=== PATIENT | female | born 1965 | race Caucasian/White ===

== ENCOUNTER 2018-07-03 18:31 | Inpatient (IN) | payer OTHER ==
--- NOTE | 2018-07-03 19:57 | PDOC ---
History of Present Illness - General Chief Complaint: Pain, Acute Stated Complaint: PAIN, ACUTE Time Seen by Provider: 07/03/18 19:23 History Source: Patient Exam Limitations: No Limitations - History of Present Illness Initial Comments: 07/03/18 19:46 53 yo female pmh COPD, hypertension, kidney stones (most recent 5 years ago, required admission to hospital and lithotripsy) and bowel obstruction over 20 years ago (portion of large intestine removed) presents to the ED with left flank pain and decreased appetite for 2 days. Patient states the pain started suddenly and became severe today prompting her to come to the ED. Pt admits to 1 episode of NBNB vomiting yesterday with constant nausea, no bowel movement for 2 days and chills but denies injury to affected area, CP, SOB or changes in urinary habits. Past History - Past Medical History Allergies/Adverse Reactions: Allergies Allergy/AdvReac Type Severity Reaction Status Date / Time No Known Allergies Allergy Verified 07/03/18 18:37 Home Medications: Ambulatory Orders Metoprolol Tartrate [Lopressor -] 100 mg PO DAILY 01/13/14 Amlodipine Besylate 10 mg PO DAILY 07/03/18 COPD: No HTN: Yes Kidney Stones: Yes - Immunization History Immunization Up to Date: Yes - Suicide/Smoking/Psychosocial Hx Smoking History: Never smoked Hx Alcohol Use: No Drug/Substance Use Hx: No *Physical Exam - Vital Signs Last Vital Signs Temp Pulse Resp BP Pulse Ox 98.2 F 65 18 129/60 98 07/03/18 18:37 07/03/18 18:37 07/03/18 18:37 07/03/18 18:37 07/03/18 18:37 ED Treatment Course - LABORATORY CBC & Chemistry Diagram: 07/03/18 20:50 07/03/18 20:50 Medical Decision Making - Medical Decision Making 07/03/18 23:57 53yo female pmh of kidney stones presents with left flank pain. Pt received 1000mg IV tylenol without much improvement, 4 mg IV morphine given with pain relief. Spiral CT shows no stone Labs show concerning signs of post renal nephropathy (BUN 59, Creatnine 9) Spoke with Dr. Lee who agrees to have her admitted and will see her in the morning. 07/04/18 00:[address] Lee who agrees to see patient in the morning Nephro consult and admit *DC/Admit/Observation/Transfer Diagnosis at time of Disposition: AUBREE (acute kidney injury) - Discharge Dispostion Condition at time of disposition: Stable Decision to Admit order: Yes - Referrals Referrals: Cali Vasquez MD [Primary Care Provider] - - Patient Instructions - Post Discharge Activity
--- NOTE | 2018-07-03 20:12 | PDOC ---
Attending Attestation - Resident Resident Name: Sridhar Riley - ED Attending Attestation I have performed the following: I have examined & evaluated the patient, The case was reviewed & discussed with the resident, I agree w/resident's findings & plan, Exceptions are as noted - HPI HPI: 07/03/18 21:25 The patient is a 53-year-old female with past medical history significant for COPD, HTH, hx of Kidney stones (s/p lithotripsy 5 years ago), and bowel obstruction (20 years ago with a portion of large intestine removal) presents to the emergency department with L. flank pain, nausea and decreased appetite. The patient presents with 2 days of symptoms that worsened earlier today. The patient states she had an episode of nonbilious-bloody emesis yesterday, denies any episodes today but states shes been nauseous all day, without relief. The patient reports associated symptoms of unable to move bowel for the past 2 days , states baseline she has 2-3 bowel movements daily. Denies chest pain, shortness of breath, trauma, recent travel, sick constant, diarrhea, dysuria, hematuria, frequency or urgency to urinate, fever, chills or dizziness. Allergies: NKA Social history: No past or present use of tobacco, alcohol or recreational drugs. Surgical history: lithotripsy and partial L. intestine removed. PCP: Cali Chapa MD - Physicial Exam PE: 07/03/18 21:25 GENERAL: Awake, alert, and fully oriented, in no acute distress. Appears uncomfortable. EYES: PERRLA, EOMI, sclera anicteric, conjunctiva clear ENT: Oropharynx clear without exudates. Moist mucosa NECK: Normal ROM, supple LUNGS: Breath sounds equal, clear to auscultation bilaterally. No wheezes, and no crackles HEART: Regular rate and rhythm, normal S1 and S2, no murmurs, rubs or gallops ABDOMEN: Soft, nontender, normoactive bowel sounds. No guarding, no rebound. No masses. +L CVAT EXTREMITIES: Normal range of motion, no edema. No cords, erythema, or tenderness BACK: No midline spinal tenderness in cervical/thoracic/lumbar region NEUROLOGICAL: Normal speech, cranial nerves intact, 5/5 strength in all 4 extremities, normal sensation to light touch in all 4 extremities, normal cerebellar exam, normal gait, normal tone SKIN: Warm, Dry, normal turgor, no rashes or lesions noted. - Medical Decision Making 07/03/18 21:28 53yo F with MMP including SBO, renal colic p/w L sided flank pain, nausea that feels like previous kidney stones. Pt also with decreased BMs, possible SBO, however AXR with air through rectum and no air-fluid levels. Will obtain CTAP non con to eval for stone, check labs/UA, control pain/nausea, and reassess. 07/04/18 00:37 Labs remarkable for leukocytosis of 10 and creatinine of 9. Concern for postobstructive renal failure. CT scan with no evidence of kidney stone, however may have passed? Could be pyelonephritis. pt covered with zosyn. Case discussed with Dr. Lee (uro) who agrees with management and will see in AM. 07/04/18 00:41 Case discussed with KATHY Sam, pt accepted for admission Case discussed in detail with admitting physician including history, physical exam and ancillary studies. Admitting physician has assumed care for the patient, will follow all pending diagnostics and will complete the evaluation and treatment.
[2018-07-03] MEDS ORDERED: ACETAMINOPHEN 1000 MG/100 ML VIAL (NON FORMULARY) IVPB ONE (20:17)
[2018-07-03] MEDS ORDERED: ACETAMINOPHEN INJECTION 100 ML IVPB ONE (20:37)
[2018-07-03 20:40] LABS: URINE APPEARANCE SLCLOUDY; URINE BILIRUBIN NEGATIVE (<2.0 mg/dL); URINE COLOR LTYELLOW; URINE GLUCOSE (UA) NEGATIVE (NEGATIVE); URINE KETONE NEGATIVE (NEGATIVE); URINE LEUK ESTERASE 3+ (NEGATIVE); URINE NITRITE NEGATIVE (NEGATIVE); URINE PROTEIN NEGATIVE (NEGATIVE); URINE UROBILINOGEN NEGATIVE mg/dL (0.2-1.0)
[2018-07-03 20:56] LABS: EPI CELLS RARE /HPF (FEW); URINE BACTERIA RARE /hpf (NONE SEEN); URINE MUCUS RARE
[2018-07-03 21:16] LABS: BASO % 1.1 % (0-2.0); EOS % 2.1 % (0-4.5); HEMOGLOBIN 15.2 GM/dL (10.7-15.3); LYMPH % 23.8 % (8-40); MCH 30.2 pg (25.7-33.7); MCHC 33.8 g/dl (32.0-36.0); MEAN CELL VOLUME 89.3 fl (80-96); MEAN PLT VOLUME 7.8 fl (7.5-11.1); MONO % 7.1 % (3.8-10.2); NEUT % 65.9 % (42.8-82.8); PLATELET COUNT 254 K/MM3 (134-434); RBC 5.04 M/mm3 (3.60-5.2); RDW 12.9 % (11.6-15.6); WHITE BLOOD COUNT 10.3 K/mm3 (4.0-10.0)
[2018-07-03] MEDS ORDERED: ONDANSETRON 4 MG/2 ML VIAL ONE (21:18)
[2018-07-03] MEDS ORDERED: morphine CARPU-JECT 4 MG/1 ML DISP.SYRIN IVPUSH ONE (21:24)
[2018-07-03] MEDS: ONDANSETRON 4 MG/2 ML VIAL IVPUSH ONE (21:24)
[2018-07-03] MEDS ORDERED: morphine SULFATE 4 MG/ML VIAL ONE (21:31)
[2018-07-03 21:47] LABS: ALBUMIN 3.7 g/dl (3.4-5.0); ALK PHOS 66 U/L (45-117); ANION GAP 11 MMOL/L (8-16); BILIRUBIN,TOTAL 0.8 mg/dL (0.2-1); BLOOD UREA NITROGEN 59 mg/dL (7-18); CALCIUM 8.8 mg/dL (8.5-10.1); CHLORIDE 102 mmol/L (98-107); CO2 24 mmol/L (21-32); GLUCOSE,RANDOM 94 mg/dL (74-106); LIPASE 268 U/L (73-393); POTASSIUM 5.3 mmol/L (3.5-5.1); SGOT/AST 25 U/L (15-37); SGPT/ALT 23 U/L (13-61); SODIUM 138 mmol/L (136-145); TOT PROT 7.2 g/dl (6.4-8.2)
[2018-07-03] MEDS ORDERED: SODIUM CHLORIDE 1,000 ML IV STA (23:04)
[2018-07-03] MEDS ORDERED: PIPERACILLIN/TAZOB 4.5 GM 4.5 GM in DEXTROSE 5%-WATER 100 ML IVPB ONE (23:13)
[2018-07-03] MEDS ORDERED: PIPERACILLIN/TAZOB 4.5 GM 4.5 GM/100 ML BAG IVPB ONE (23:22)
--- NOTE | 2018-07-04 02:34 | HP ---
CHIEF COMPLAINT: left flank pain PCP: Cali Vasquez HISTORY OF PRESENT ILLNESS: This is a 53 year old female with a significant past medical history of HTN, bowel obstruction, kidney stones who presented to the ED with L flank pain and decreased appetite x 2 days. Also + nausea; vomited x 1 yesterday. Pt denies diarrhea, last normal BM 2 days ago but does not feel constipated. ER course was notable for: (1) WBC 10.3 (2) BUN 59, Cr 9.0 (3) Recent Travel: [place] 3 weeks ago PAST MEDICAL HISTORY: mild early COPD, HTN, kidney stones, bowel obstruction PAST SURGICAL HISTORY: colon resection 20 years ago x 2 Social History: works as a nurse at [employer] Smoking: pt denies Alcohol: pt denies Drugs: pt denies Family History: mother alive with HTN father age 48, lung CA, +smoker&ETOH 2 sisters with HTN 1 sister with DM, HTN 1 brother with HTN 1 brother with gout 1 brother ok, no PMH Allergies No Known Allergies Allergy (Verified 07/03/18 18:37) HOME MEDICATIONS: 3 Medication Instructions Recorded Amlodipine Besylate 10 mg PO DAILY 07/03/18 Metoprolol Succinate [Toprol Xl] 100 mg PO DAILY 07/04/18 REVIEW OF SYSTEMS CONSTITUTIONAL: Absent: fever, chills, diaphoresis, generalized weakness, malaise, loss of appetite, weight change HEENT: Absent: rhinorrhea, nasal congestion, throat pain, throat swelling, difficulty swallowing, mouth swelling, ear pain, eye pain, visual changes CARDIOVASCULAR: Absent: chest pain, syncope, palpitations, irregular heart rate, lightheadedness , peripheral edema RESPIRATORY: Absent: cough, shortness of breath, dyspnea with exertion, orthopnea, wheezing, stridor, hemoptysis GASTROINTESTINAL: Present: nausea, vomiting Absent: abdominal pain, abdominal distension, diarrhea, constipation, melena, hematochezia GENITOURINARY: Present: flank pain Absent: dysuria, frequency, urgency, hesitancy, hematuria, genital pain MUSCULOSKELETAL: Absent: myalgia, arthralgia, joint swelling, back pain, neck pain SKIN: Absent: rash, itching, pallor HEMATOLOGIC/IMMUNOLOGIC: Absent: easy bleeding, easy bruising, lymphadenopathy, frequent infections ENDOCRINE: Absent: unexplained weight gain, unexplained weight loss, heat intolerance, cold intolerance NEUROLOGIC: Absent: headache, focal weakness or paresthesias, dizziness, unsteady gait, seizure, mental status changes, bladder or bowel incontinence PSYCHIATRIC: Absent: anxiety, depression, suicidal or homicidal ideation, hallucinations. PHYSICAL EXAMINATION Vital Signs - 24 hr 3 07/03/18 07/03/18 07/04/18 18:37 22:44 00:43 Temperature 98.2 F Pulse Rate 65 Pulse Rate [ 72 Left Radial] Respiratory 18 18 Rate Blood Pressure 129/60 Blood Pressure 124/80 [Right Arm] O2 Sat by Pulse 98 98 98 Oximetry (%) GENERAL: Awake, alert, and fully oriented, in no acute distress. HEAD: Normal with no signs of trauma. EYES: Pupils equal, round and reactive to light, extraocular movements intact, sclera anicteric, conjunctiva clear. No lid lag. EARS, NOSE, THROAT: Ears normal, nares patent, oropharynx clear without exudates. Moist mucous membranes. NECK: Normal range of motion, supple without lymphadenopathy, JVD, or masses. LUNGS: Breath sounds equal, clear to auscultation bilaterally. No wheezes, and no crackles. No accessory muscle use. HEART: Regular rate and rhythm, normal S1 and S2 without murmur, rub or gallop. ABDOMEN: Soft, nontender, not distended, normoactive bowel sounds, no guarding, no rebound, no masses. No hepatomegaly or splenomegaly. MUSCULOSKELETAL: Normal range of motion at all joints. No bony deformities or tenderness. + Left CVA tenderness. UPPER EXTREMITIES: 2+ pulses, warm, well-perfused. No cyanosis. No clubbing. No peripheral edema. LOWER EXTREMITIES: 2+ pulses, warm, well-perfused. No calf tenderness. No peripheral edema. NEUROLOGICAL: Cranial nerves II-XII intact. Normal speech. Normal gait. PSYCHIATRIC: Cooperative. Good eye contact. Appropriate mood and affect. SKIN: Warm, dry, normal turgor, no rashes or lesions noted, normal capillary refill. Laboratory Results - last 24 hr 3 07/03/18 07/03/18 07/03/18 20:10 20:50 20:50 WBC 10.3 H RBC 5.04 Hgb 15.2 Hct 45.0 MCV 89.3 MCH 30.2 MCHC 33.8 RDW 12.9 D Plt Count 254 MPV 7.8 Absolute Neuts (auto) 6.8 Neutrophils % 65.9 Lymphocytes % 23.8 Monocytes % 7.1 Eosinophils % 2.1 D Basophils % 1.1 Nucleated RBC % 0 Sodium 138 Potassium 5.3 H Chloride 102 Carbon Dioxide 24 Anion Gap 11 BUN 59 H Creatinine 9.0 H* Creat Clearance w eGFR 4.59 Random Glucose 94 Calcium 8.8 Total Bilirubin 0.8 AST 25 ALT 23 Alkaline Phosphatase 66 Troponin I < 0.02 Total Protein 7.2 Albumin 3.7 Lipase 268 Urine Color Ltyellow Urine Appearance Slcloudy Urine pH 5.0 Ur Specific [place] 1.009 L Urine Protein Negative Urine Glucose (UA) Negative Urine Ketones Negative Urine Blood 1+ H Urine Nitrite Negative Urine Bilirubin Negative Urine Urobilinogen Negative Ur Leukocyte Esterase 3+ H Urine WBC (Auto) 54 Urine RBC (Auto) 13 Ur Epithelial Cells Rare Urine Bacteria Rare Urine Mucus Rare ECG sinus bradycardia vent rate 50, QTC [address]/T wave changes Radiology Reports CT abd/pelvis without contrast THIS IS A PRELIMINARY REPORT FROM [facility] FINDINGS: Lung bases are clear. The visualized cardiac chambers are normal size and configuration. There are gallstones but no gallbladder inflammation or biliary duct dilation. There are nonobstructing right renal stones and renal scarring but no hydronephrosis. Normal unenhanced liver, pancreas, spleen, adrenal glands and left kidney. The stomach and abdominal small and large bowel are normal. There is no aortic aneurysm. There is no significant retroperitoneal lymphadenopathy. There is mild wall thickening of the rectum, unclear secondary to mild proctitis or luminal distention. No bowel obstruction, abscess or free air. There is no evidence of appendicitis although the appendix is not clearly visualized. The uterus and adnexal structures are normal. Urinary bladder is unremarkable. There is no pelvic free fluid. No discrete pelvic lymphadenopathy is identified. IMPRESSION: Gallstones. Nonobstructing right renal stones and right renal scarring. Questionable mild proctitis. THIS DOCUMENT HAS BEEN ELECTRONICALLY SIGNED Abdon Rivers MD 07/03/2018 23:39 EST ASSESSMENT/PLAN: 53yF with PMH mild early COPD, HTN, kidney stones, bowel obstruction presented to the ED with L flank pain, nausea, vomiting. Left flank pain in setting of UTI - unclear etiology, ? passed stone vs pyelonephritis - given one dose zosyn in ED, will change to ceftriaxone 1g daily - ultrasound kidneys ordered for AM AUBREE - creatinine 9.0, pt denies any history of kidney disease - renal consult ordered - ? due to obstructive uropathy if recently passed stone? - repeat BMP in am - us kidneys HTN - cont home BP meds DVT PPX - heparin 5000 units SC BID FEN - NS @ 75cc/hr - BMP in am - low sodium diet as tolerated Dispo: pt currently requires further inpatient management of her emergent condition. Visit type - Emergency Visit Emergency Visit: Yes ED Registration Date: 07/03/18 Care time: The patient presented to the Emergency Department on the above date and was hospitalized for further evaluation of their emergent condition. - New Patient This patient is new to me today: Yes Date on this admission: 07/04/18 - Critical Care Critical Care patient: No
[2018-07-04] MEDS ORDERED: ONDANSETRON 4 MG/2 ML VIAL IVPUSH ONE (02:42)
[2018-07-04] MEDS ORDERED: SODIUM CHLORIDE 1,000 ML IV SCH (02:45)
[2018-07-04] MEDS ORDERED: morphine CARPU-JECT 4 MG/1 ML DISP.SYRIN IVPUSH ONE (02:54)
[2018-07-04] MEDS ORDERED: morphine SULFATE 4 MG/ML VIAL ONE (03:13)
[2018-07-04] MEDS ORDERED: ONDANSETRON 4 MG/2 ML VIAL ONE (03:14)
[2018-07-04] MEDS ORDERED: CEFTRIAXONE 1 GM/50 ML BAG ONE (06:03)
[2018-07-04] MEDS: CEFTRIAXONE 1 GM in DEXTROSE 5%-WATER - 50 ML IVPB SCH (06:11)
[2018-07-04 07:28] LABS: EOS % 1.4 % (0-4.5); HEMATOCRIT 40.1 % (32.4-45.2); HEMOGLOBIN 13.2 GM/dL (10.7-15.3); LYMPH % 15.6 % (8-40); MCH 29.5 pg (25.7-33.7); MCHC 32.9 g/dl (32.0-36.0); MEAN CELL VOLUME 89.6 fl (80-96); MEAN PLT VOLUME 7.6 fl (7.5-11.1); MONO % 6.9 % (3.8-10.2); NEUT % 75.1 % (42.8-82.8); PLATELET COUNT 199 K/MM3 (134-434); RBC 4.47 M/mm3 (3.60-5.2); RDW 12.9 % (11.6-15.6)
[2018-07-04 08:00] LABS: ANION GAP 10 MMOL/L (8-16); BLOOD UREA NITROGEN 61 mg/dL (7-18); CALCIUM 8.1 mg/dL (8.5-10.1); CHLORIDE 105 mmol/L (98-107); CO2 22 mmol/L (21-32); GLUCOSE,RANDOM 102 mg/dL (74-106); MAGNESIUM 2.5 mg/dL (1.8-2.4); PHOSPHOROUS 7.3 mg/dL (2.5-4.9); POTASSIUM 5.7 mmol/L (3.5-5.1); SODIUM 137 mmol/L (136-145)
[2018-07-04 08:14] LABS: CREATININE 9.2 mg/dL (0.55-1.3)
[2018-07-04] MEDS ORDERED: amLODIPine BESYLATE 10 MG TABLET (FP) PO SCH (10:00)
[2018-07-04] MEDS: HEPARIN NA (PORCINE) 5,000 UNITS/ML 1ML VIAL SQ SCH ×2 (10:36→22:31)
[2018-07-04] MEDS: amLODIPine BESYLATE 10 MG TABLET (FP) PO SCH (10:36)
[2018-07-04] MEDS ORDERED: SODIUM CHLORIDE 0.45% 1,000 ML IV SCH (12:45)
--- NOTE | 2018-07-04 12:50 | PN ---
Progress Note, Physician History of Present Illness: pt seen/ examined in er chart reviewed family at bedside feels better passing urine repeat cr -- >[address] p[address] pmd Dr[address] Vasquez - has normal blood tests last month - Current Medication List Current Medications: Active Medications Amlodipine Besylate (Norvasc -) 10 mg PO DAILY [facility] Last Admin: 07/04/18 10:36 Dose: 10 mg Heparin Sodium (Porcine) (Heparin -) 5,000 unit SQ BID YVAN Last Admin: 07/04/18 10:36 Dose: 5,000 unit Ceftriaxone Sodium 1 gm/ (Dextrose) 50 mls @ 100 mls/hr IVPB DAILY YVAN; Protocol Last Admin: 07/04/18 06:11 Dose: 100 mls/hr Sodium Chloride (1/2 Normal Saline) 1,000 mls @ 100 mls/hr IV ASDIR YVAN Metoprolol Succinate (Toprol Xl -) 100 mg PO DAILY YVAN Last Admin: 07/04/18 10:37 Dose: 100 mg - Objective Vital Signs: Vital Signs Temperature 98.1 F 07/04/18 07:18 Pulse Rate 65 07/04/18 10:15 Respiratory Rate 18 07/04/18 10:15 Blood Pressure 130/65 07/04/18 10:15 O2 Sat by Pulse Oximetry (%) 100 07/04/18 10:15 Constitutional: Yes: No Distress, Calm Eyes: Yes: Conjunctiva Clear Neck: Yes: Supple Respiratory: Yes: CTA Bilaterally Gastrointestinal: Yes: Normal Bowel Sounds, Soft Edema: No Neurological: Yes: Alert Psychiatric: Yes: Alert Labs: CBC, BMP 07/04/18 07:00 07/04/18 07:00 Problem List - Problems (1) UTI (urinary tract infection) Code(s): N39.0 - URINARY TRACT INFECTION, SITE NOT SPECIFIED (2) AUBREE (acute kidney injury) Code(s): N17.9 - ACUTE KIDNEY FAILURE, UNSPECIFIED (3) HTN (hypertension) Code(s): I10 - ESSENTIAL (PRIMARY) HYPERTENSION Assessment/Plan Discussed with Teacher Resource Will follow Fluids Abx f/u cultures May need dialysis - if no improvement Possible kidney biopsy will follow
[2018-07-04] MEDS ORDERED: DEXTROSE 50%-WATER - 25 GM/50 ML VIAL IVPUSH ONE (13:12)
[2018-07-04] MEDS ORDERED: SODIUM BICARBONATE 8.4% 50 MEQ/50 ML DISP.SYRIN IVPUSH ONE (13:12)
[2018-07-04] MEDS ORDERED: INSULIN REGULAR HUMAN 100 UNITS/ML *VIAL IVPUSH ONE (13:12)
--- NOTE | 2018-07-04 13:12 | CONSULT ---
Consult Consult Specialty:: Nephrology Reason for Consultation:: AUBREE - History of Present Illness Chief Complaint: left flank pain History of Present Illness: Pt is a 53 year old female with pmhx of COPD, HTN, nephrolithiasis and bowel obstruction who presents to the ER with left flank pain. She was found to be in acute renal failure and I was called to evaluate her. She says she has had left flank pain and has not had much appetite. She also says she had an episode of vomiting. She denies history of CKD. She denies excess nsaid use. She says that she has a history of right congenital kidney disease. She denies dysuria or hematuria. She denies any decrease in urination. She denies fevers but does get chills at times. She denies any respiratory symptoms. She remember she had bloodwork as outpt last month. - History Source History Provided By: Patient, Medical Record - Past Medical History Cardio/Vascular: Yes: HTN Pulmonary: Yes: COPD Renal/: Yes: Renal Calculi - Alcohol/Substance Use Hx Alcohol Use: No - Smoking History Smoking history: Never smoked Home Medications - Allergies Allergies/Adverse Reactions: Allergies Allergy/AdvReac Type Severity Reaction Status Date / Time No Known Allergies Allergy Verified 07/03/18 18:37 - Home Medications Home Medications: Ambulatory Orders Amlodipine Besylate 10 mg PO DAILY 07/03/18 Metoprolol Succinate [Toprol Xl] 100 mg PO DAILY 07/04/18 Family Disease History - Family Disease History Family History: Denies Review of Systems - Review of Systems Constitutional: reports: Chills, Malaise Eyes: reports: No Symptoms HENT: reports: No Symptoms Neck: reports: No Symptoms Cardiovascular: reports: No Symptoms Respiratory: reports: No Symptoms Gastrointestinal: reports: No Symptoms Genitourinary: reports: Flank Pain Musculoskeletal: reports: No Symptoms Integumentary: reports: No Symptoms Neurological: reports: No Symptoms Endocrine: reports: No Symptoms Hematology/Lymphatic: reports: No Symptoms Psychiatric: reports: No Symptoms Physical Exam Vital Signs: Vital Signs Temperature 98.1 F 07/04/18 07:18 Pulse Rate 65 07/04/18 10:15 Respiratory Rate 18 07/04/18 10:15 Blood Pressure 130/65 07/04/18 10:15 O2 Sat by Pulse Oximetry (%) 100 07/04/18 10:15 Constitutional: Yes: Calm Eyes: Yes: Conjunctiva Clear HENT: Yes: Atraumatic Cardiovascular: Yes: S1, S2 Respiratory: Yes: CTA Bilaterally Gastrointestinal: Yes: Soft Renal/: Yes: WNL. No: CVA Tenderness - Left, CVA Tenderness - Right Musculoskeletal: Yes: WNL Edema: No Neurological: Yes: Oriented Psychiatric: Yes: Oriented Labs: CBC, BMP 07/04/18 07:00 07/04/18 07:00 Laboratory Tests 07/03/18 07/04/18 07/04/18 20:10 13:20 13:21 Urine Protein Negative Urine Blood 1+ H KAYCEE M-Nasir Pending HILARY Screen Pending c-ANCA Pending Proteinase 3 (PR3) Pending p-ANCA Pending Atypical p-ANCA Pending Myeloperoxidase Ab Pending Double Strand DNA Ab Pending Glomerular Base Memb Ab Pending Hepatitis A Ab Total Pending Hep Bs Antigen Pending Hep Bs Antibody Pending Hep B Core Total Ab Pending HCV Quantitation Pending Imaging - Results Cat Scan: Report Reviewed Ultrasound: Report Reviewed Problem List - Problems (1) HTN (hypertension) Code(s): I10 - ESSENTIAL (PRIMARY) HYPERTENSION (2) COPD (chronic obstructive pulmonary disease) Code(s): J44.9 - CHRONIC OBSTRUCTIVE PULMONARY DISEASE, UNSPECIFIED (3) AUBREE (acute kidney injury) Code(s): N17.9 - ACUTE KIDNEY FAILURE, UNSPECIFIED Assessment/Plan Current Medications Generic Name Dose Route Start Last Admin Trade Name Freq PRN Reason Stop Dose Admin Amlodipine Besylate 10 mg 07/04/18 10:00 07/04/18 10:36 Norvasc - PO 10 mg DAILY YVAN Administration Heparin Sodium (Porcine) 5,000 unit 07/04/18 10:00 07/04/18 10:36 Heparin - SQ 5,000 unit BID YVAN Administration Ceftriaxone Sodium 1 gm/ 50 mls @ 100 mls/hr 07/04/18 06:00 07/04/18 06:11 Dextrose IVPB 100 mls/hr DAILY YVAN Administration Protocol Sodium Chloride 1,000 mls @ 100 mls/hr 07/04/18 12:45 07/04/18 13:05 1/2 Normal Saline IV 100 mls/hr ASDIR YVAN Administration Metoprolol Succinate 100 mg 07/04/18 10:00 07/04/18 10:37 Toprol Xl - PO 100 mg DAILY YVAN Administration Impression 1. AUBREE 2. hyperkalemia 3. HTN 4. nephrolithiasis 5. UTI Plan - called pmd and pt has labs done on 05/18/18 with a bun of 13 and small business director of 0.9. US was neg for blood and had trace protein - potassium treated medically - increase rate of fluids - discussed dialysis therapy at length with pt and she would like to hold off for now. She is a nurse at [employer] - ordered renal workup for AUBREE - pt has an atrophic right kidney and an enlarged left kidney, will discuss biopsy options with IR - repeat labs to evaluate potassium - monitor bp - discussed case with family as well - check cpk - send blood cultures - called urology to evaluate pt as well - place marie and monitor output - will follow Dr Leon
[2018-07-04] MEDS ORDERED: ALBUTEROL SO4 0.083% IH SOL 2.5 MG/3 ML VIAL.NEB. NEB PRN (13:13)
[2018-07-04] MEDS ORDERED: CALCIUM GLUCONATE 10% - 1,000 MG/10 ML VIAL IVPB ONE (13:14)
[2018-07-04] MEDS ORDERED: DEXTROSE 50%-WATER 25 GM/50 ML DISP.SYRIN ONE (14:00)
[2018-07-04] MEDS ORDERED: SODIUM BICARBONATE 8.4% 50 MEQ/50 ML VIAL ONE ×2 (14:00→14:31)
[2018-07-04] MEDS ORDERED: INSULIN REGULAR HUMAN 100 UNITS/ML *VIAL ONE (14:01)
[2018-07-04] MEDS ORDERED: ALBUTEROL SO4 0.083% IH SOL 2.5 MG/3 ML VIAL.NEB. NEB ONE (14:30)
[2018-07-04] MEDS ORDERED: CALCIUM GLUCONATE 10% - 1,000 MG/10 ML VIAL ONE (14:30)
[2018-07-04 17:35] VITALS: BMI 24.1
[2018-07-04] MEDS: CALCIUM ACETATE 667 MG CAPSULE (FP) PO SCH (17:45)
[2018-07-04] MEDS: ONDANSETRON 4 MG/2 ML VIAL IVPUSH ONE (18:00)
[2018-07-04] MEDS ORDERED: ONDANSETRON 4 MG TABLET PO ONE (19:45)
[2018-07-04 20:04] LABS: ANION GAP 14 MMOL/L (8-16); BLOOD UREA NITROGEN 58 mg/dL (7-18); CALCIUM 8.1 mg/dL (8.5-10.1); CHLORIDE 102 mmol/L (98-107); CO2 21 mmol/L (21-32); GLUCOSE,RANDOM 100 mg/dL (74-106); POTASSIUM 4.8 mmol/L (3.5-5.1); SODIUM 137 mmol/L (136-145)
[2018-07-04 20:07] LABS: CREATININE 8.5 mg/dL (0.55-1.3)
--- NOTE | 2018-07-04 20:15 | PN ---
Progress Note (short form) - Note Progress Note: Renal Laboratory Tests 07/04/18 17:45 Sodium 137 Potassium 4.8 Chloride 102 Carbon Dioxide 21 Anion Gap 14 BUN 58 H Creatinine 8.5 H* Laboratory Tests 07/04/18 17:45 Creatine Kinase 42 - repeat labs reviewed - potassium improving - renal function starting to improve - cont fluids, will increase rate - cpk is normal Dr Leon Problem List - Problems (1) HTN (hypertension) Code(s): I10 - ESSENTIAL (PRIMARY) HYPERTENSION (2) COPD (chronic obstructive pulmonary disease) Code(s): J44.9 - CHRONIC OBSTRUCTIVE PULMONARY DISEASE, UNSPECIFIED (3) AUBREE (acute kidney injury) Code(s): N17.9 - ACUTE KIDNEY FAILURE, UNSPECIFIED
--- NOTE | 2018-07-04 21:26 | EKG ---
Test Reason : Blood Pressure : / mmHG Vent. Rate : 050 BPM Atrial Rate : 050 BPM P-R Int : 154 ms QRS Dur : 080 ms QT Int : 454 ms P-R-T Axes : 069 056 058 degrees QTc Int : 413 ms SINUS BRADYCARDIA OTHERWISE NORMAL ECG WHEN COMPARED WITH ECG OF 13-JAN-2014 02:38, NO SIGNIFICANT CHANGE WAS FOUND Confirmed by HANDY CLEMENT MD ([id number]) on 07/04/2018 9:25:39 PM Referred By: Confirmed By:HANDY CLEMENT MD
[2018-07-04 22:11] LABS: URINE APPEARANCE CLEAR; URINE BILIRUBIN NEGATIVE (<2.0 mg/dL); URINE COLOR STRAW; URINE GLUCOSE (UA) 1+ (NEGATIVE); URINE KETONE NEGATIVE (NEGATIVE); URINE LEUK ESTERASE 1+ (NEGATIVE); URINE NITRITE NEGATIVE (NEGATIVE); URINE PROTEIN NEGATIVE (NEGATIVE); URINE UROBILINOGEN NEGATIVE mg/dL (0.2-1.0)
[2018-07-04 22:16] LABS: EPI CELLS RARE /HPF (FEW)
[2018-07-04] MEDS: SODIUM CHLORIDE 0.45% 1,000 ML IV SCH (22:30)
--- NOTE | 2018-07-04 23:25 | CONS ---
DATE OF CONSULTATION: DATE OF DICTATION: 07/04/2018 HISTORY OF PRESENT ILLNESS: The patient is a 53-year-old female admitted via the emergency room on July 04, 2018. She presents with left flank pain associated with anorexia, nausea, and several episodes of vomiting. The patient does have history of COPD, high blood pressure, nephrolithiasis. She has undergone a bowel resection multiple years ago. She has also undergone several ureteral lithotripsies. In the emergency room, a CT scan of the abdomen revealed an atrophic right kidney and a hypertrophic left kidney. The right kidney also revealed a 4-mm nonobstructing right renal calculus. There was atrophy without interval change from a CAT scan 8 years earlier. Patient also had cholelithiasis. She also had mild concentric rectal wall thickening, clinical correlation to rule out proctitis is recommended. Patient is also found to have cholelithiasis as well as a 2.5 cm right lobe hepatic hemangioma. The patient underwent laboratory workup in the emergency room, and her white count was 10.3, hemoglobin and hematocrit was 15.2 over 45, platelets were 254. Liver enzymes were all within normal limits. Her BUN and creatinine were 59/9. Random glucose was 88. Troponin and protein were within normal limits. A urinalysis was positive for blood and negative for nitrates. There was a large amount of leukocyte esterase. The patient denied any voiding symptoms, but a Naik catheter placed in the emergency room revealed between 400 and 500 mL of clear colored urine. She denies any history of kidney disease. She denies any excess of any NSAIDs or other nephrotoxic medications. She also denies any diminished urination. She does have frequency and nocturia x2. She states that she has been constipated for the past 2 days. IMPRESSION: At present is acute azotemia, no evidence of upper tract obstruction. Will recommend a diuretic nuclear renal scan. If no obstruction is found, will deal with acute kidney injury, possibly acute tubular necrosis. Will follow with you. SHABANA MOSHER M.D. SILVERIO/[id number]
[2018-07-05 07:19] LABS: INR 0.9 (0.83-1.09); PROTHROMBIN TIME (PATIENT) 10.6 SEC (9.7-13.0)
[2018-07-05 07:22] LABS: ACTIVATED PTT 30.5 SECONDS (25.2-36.5)
[2018-07-05] MEDS: SODIUM CHLORIDE 0.45% 1,000 ML IV SCH (07:27)
[2018-07-05 07:33] LABS: ALBUMIN 2.7 g/dl (3.4-5.0); ALK PHOS 53 U/L (45-117); ANION GAP 10 MMOL/L (8-16); BILIRUBIN,TOTAL 0.5 mg/dL (0.2-1); BLOOD UREA NITROGEN 59 mg/dL (7-18); CALCIUM 8.1 mg/dL (8.5-10.1); CHLORIDE 102 mmol/L (98-107); CO2 22 mmol/L (21-32); GLUCOSE,RANDOM 110 mg/dL (74-106); POTASSIUM 4.9 mmol/L (3.5-5.1); SGOT/AST 17 U/L (15-37); SGPT/ALT 16 U/L (13-61); SODIUM 134 mmol/L (136-145); TOT PROT 5.4 g/dl (6.4-8.2)
[2018-07-05] MEDS ORDERED: SODIUM CHLORIDE 1,000 ML IV SCH (08:00)
[2018-07-05] MEDS ORDERED: cefTRIAXone SODIUM 1 GM VIAL ONE (08:07)
[2018-07-05] MEDS ORDERED: DEXTROSE 5%-WATER - 50 ML IVPB ONE (08:07)
[2018-07-05] MEDS: CALCIUM ACETATE 667 MG CAPSULE (FP) PO SCH ×3 (08:09→17:09)
[2018-07-05] MEDS: CEFTRIAXONE 1 GM in DEXTROSE 5%-WATER - 50 ML IVPB SCH (09:54)
[2018-07-05] MEDS: HEPARIN NA (PORCINE) 5,000 UNITS/ML 1ML VIAL SQ SCH ×2 (09:55→21:43)
[2018-07-05 11:02] LABS: MAGNESIUM 2.2 mg/dL (1.8-2.4); PHOSPHOROUS 6.9 mg/dL (2.5-4.9)
[2018-07-05 12:20] LABS: URINE APPEARANCE CLEAR; URINE BILIRUBIN NEGATIVE (<2.0 mg/dL); URINE COLOR STRAW; URINE GLUCOSE (UA) NEGATIVE (NEGATIVE); URINE KETONE NEGATIVE (NEGATIVE); URINE LEUK ESTERASE 2+ (NEGATIVE); URINE NITRITE NEGATIVE (NEGATIVE); URINE PROTEIN NEGATIVE (NEGATIVE); URINE UROBILINOGEN NEGATIVE mg/dL (0.2-1.0)
[2018-07-05] MEDS: amLODIPine BESYLATE 10 MG TABLET (FP) PO SCH (12:39)
--- NOTE | 2018-07-05 12:54 | PN ---
Progress Note (short form) - Note Progress Note: Constipated decreased appetite sleep is poor belching+feels bloated states she was on metoprolol at home transferred to [facility] for bradycardia Vital Signs - 24 hr 07/04/18 07/04/18 07/04/18 14:20 17:27 20:00 Temperature 98.3 F 98.3 F 98.2 F Pulse Rate 66 61 Pulse Rate [ 64 Left Radial] Respiratory 18 18 17 Rate Blood Pressure 128/65 138/74 Blood Pressure 115/63 [Right Arm] O2 Sat by Pulse 100 Oximetry (%) 07/04/18 07/05/18 07/05/18 21:00 02:06 05:48 Temperature 99.0 F 98.3 F Pulse Rate 56 L 54 L 55 L Pulse Rate [ Left Radial] Respiratory 18 18 18 Rate Blood Pressure 141/70 121/61 122/60 Blood Pressure [Right Arm] O2 Sat by Pulse 98 Oximetry (%) 07/05/18 10:00 Temperature 98 F Pulse Rate 53 L Pulse Rate [ Left Radial] Respiratory 18 Rate Blood Pressure 130/70 Blood Pressure [Right Arm] O2 Sat by Pulse Oximetry (%) Current Medications Generic Name Dose Route Start Last Admin Trade Name Freq PRN Reason Stop Dose Admin Albuterol Sulfate 1 amp 07/04/18 13:13 07/04/18 14:50 Ventolin 0.083% Nebulizer Soln - NEB 1 amp Q1H PRN Administration SHORT OF BREATH/WHEEZING Amlodipine Besylate 10 mg 07/04/18 10:00 07/05/18 12:39 Norvasc - PO 10 mg DAILY YVAN Administration Calcium Acetate 667 mg 07/04/18 17:30 07/05/18 11:56 Phoslo - PO 667 mg TIDCM YVAN Administration Heparin Sodium (Porcine) 5,000 unit 07/04/18 10:00 07/05/18 09:55 Heparin - SQ 5,000 unit BID YVAN Administration Ceftriaxone Sodium 1 gm/ 50 mls @ 100 mls/hr 07/04/18 06:00 07/05/18 09:54 Dextrose IVPB 100 mls/hr DAILY YVAN Administration Protocol Sodium Chloride 1,000 mls @ 100 mls/hr 07/05/18 08:00 07/05/18 08:09 Normal Saline - IV 100 mls/hr ASDIR YVAN Administration Metoprolol Succinate 100 mg 07/04/18 10:00 07/05/18 11:53 Toprol Xl - PO Not Given DAILY YVAN Laboratory Results - last 24 hr 07/04/18 07/04/18 07/04/18 17:45 19:00 19:00 PT with INR INR PTT (Actin FS) Sodium 137 Potassium 4.8 Chloride 102 Carbon Dioxide 21 Anion Gap 14 BUN 58 H Creatinine 8.5 H* Creat Clearance w eGFR 4.91 Random Glucose 100 Calcium 8.1 L Phosphorus Magnesium Total Bilirubin AST ALT Alkaline Phosphatase Creatine Kinase 42 Total Protein Albumin Urine Color Straw Urine Appearance Clear Urine pH 6.0 Ur Specific [place] 1.005 L Urine Protein Negative Urine Glucose (UA) 1+ H Urine Ketones Negative Urine Blood 2+ H Urine Nitrite Negative Urine Bilirubin Negative Urine Urobilinogen Negative Ur Leukocyte Esterase 1+ H D Urine WBC (Auto) 4 Urine RBC (Auto) 3 Ur Epithelial Cells Rare U Random Total Protein Ur Random Sodium 68 Ur Random Potassium < 9.0 L Ur Random Chloride 60 L Urine Creatinine Urine HCG, Qual 07/04/18 07/05/18 07/05/18 19:00 05:30 05:30 PT with INR 10.60 INR 0.90 PTT (Actin FS) 30.5 Sodium 134 L Potassium 4.9 Chloride 102 Carbon Dioxide 22 Anion Gap 10 BUN 59 H Creatinine 9.0 H* Creat Clearance w eGFR 4.59 Random Glucose 110 H Calcium 8.1 L Phosphorus 6.9 H Magnesium 2.2 Total Bilirubin 0.5 AST 17 ALT 16 Alkaline Phosphatase 53 Creatine Kinase Total Protein 5.4 L Albumin 2.7 L Urine Color Urine Appearance Urine pH Ur Specific [place] Urine Protein Urine Glucose (UA) Urine Ketones Urine Blood Urine Nitrite Urine Bilirubin Urine Urobilinogen Ur Leukocyte Esterase Urine WBC (Auto) Urine RBC (Auto) Ur Epithelial Cells U Random Total Protein Ur Random Sodium Ur Random Potassium Ur Random Chloride Urine Creatinine 35.0 Urine HCG, Qual 07/05/18 07/05/18 07/05/18 10:10 10:10 10:10 PT with INR INR PTT (Actin FS) Sodium Potassium Chloride Carbon Dioxide Anion Gap BUN Creatinine Creat Clearance w eGFR Random Glucose Calcium Phosphorus Magnesium Total Bilirubin AST ALT Alkaline Phosphatase Creatine Kinase Total Protein Albumin Urine Color Straw Urine Appearance Clear Urine pH 6.0 Ur Specific [place] 1.005 L Urine Protein Negative Urine Glucose (UA) Negative Urine Ketones Negative Urine Blood 3+ H Urine Nitrite Negative Urine Bilirubin Negative Urine Urobilinogen Negative Ur Leukocyte Esterase 2+ H Urine WBC (Auto) 9 Urine RBC (Auto) 3 Ur Epithelial Cells U Random Total Protein 12 H Ur Random Sodium Ur Random Potassium Ur Random Chloride Urine Creatinine 54.0 H Urine HCG, Qual Negative s1 s2 RRR Lungs clear Abd- soft, NT No edema Naik+ PLAN eval noted For renal scan Add nepro cardiology eval Telemetry check TSH , free T4
[2018-07-05] MEDS ORDERED: BISACODYL 5 MG TABLET.DR (FP) PO ONE (13:16)
[2018-07-05 13:32] LABS: RATIO URIN PROTEIN/URIN CREAT 0.22 MG/DL
--- NOTE | 2018-07-05 14:22 | PN ---
Progress Note, Physician History of Present Illness: Pt seen and examined at bedside. She complains of constipation. She feels that her appetite is improved a little today. She denies shortness of breath or lower extremity edema. She is making urine. - Current Medication List Current Medications: Active Medications Albuterol Sulfate (Ventolin 0.083% Nebulizer Soln -) 1 amp NEB Q1H PRN PRN Reason: SHORT OF BREATH/WHEEZING Last Admin: 07/04/18 14:50 Dose: 1 amp Amlodipine Besylate (Norvasc -) 10 mg PO DAILY [facility] Last Admin: 07/05/18 12:39 Dose: 10 mg Calcium Acetate (Phoslo -) 667 mg PO TIDCM [facility] Last Admin: 07/05/18 11:56 Dose: 667 mg Heparin Sodium (Porcine) (Heparin -) 5,000 unit SQ BID [facility] Last Admin: 07/05/18 09:55 Dose: 5,000 unit Ceftriaxone Sodium 1 gm/ (Dextrose) 50 mls @ 100 mls/hr IVPB DAILY [facility]; Protocol Last Admin: 07/05/18 09:54 Dose: 100 mls/hr Sodium Chloride (Normal Saline -) 1,000 mls @ 100 mls/hr IV ASDIR YVAN Last Admin: 07/05/18 08:09 Dose: 100 mls/hr - Objective Vital Signs: Vital Signs Temperature 98 F 07/05/18 10:00 Pulse Rate 53 L 07/05/18 10:00 Respiratory Rate 18 07/05/18 10:00 Blood Pressure 130/70 07/05/18 10:00 O2 Sat by Pulse Oximetry (%) 98 07/04/18 21:00 Constitutional: Yes: Calm Eyes: Yes: Conjunctiva Clear HENT: Yes: Atraumatic Cardiovascular: Yes: S1, S2 Respiratory: Yes: CTA Bilaterally Gastrointestinal: Yes: Soft Genitourinary: Yes: WNL, Naik Present Musculoskeletal: Yes: WNL Edema: No Integumentary: Yes: WNL Neurological: Yes: Oriented Psychiatric: Yes: Oriented Labs: CBC, BMP 07/04/18 07:00 07/05/18 05:30 INR, PTT INR 0.90 (0.83-1.09) 07/05/18 05:30 Problem List - Problems (1) HTN (hypertension) Code(s): I10 - ESSENTIAL (PRIMARY) HYPERTENSION (2) COPD (chronic obstructive pulmonary disease) Code(s): J44.9 - CHRONIC OBSTRUCTIVE PULMONARY DISEASE, UNSPECIFIED (3) AUBREE (acute kidney injury) Code(s): N17.9 - ACUTE KIDNEY FAILURE, UNSPECIFIED Assessment/Plan Current Medications Generic Name Dose Route Start Last Admin Trade Name Freq PRN Reason Stop Dose Admin Albuterol Sulfate 1 amp 07/04/18 13:13 07/04/18 14:50 Ventolin 0.083% Nebulizer Soln - NEB 1 amp Q1H PRN Administration SHORT OF BREATH/WHEEZING Amlodipine Besylate 10 mg 07/04/18 10:00 07/05/18 12:39 Norvasc - PO 10 mg DAILY YVAN Administration Calcium Acetate 667 mg 07/04/18 17:30 07/05/18 11:56 Phoslo - PO 667 mg TIDCM YVAN Administration Heparin Sodium (Porcine) 5,000 unit 07/04/18 10:00 07/05/18 09:55 Heparin - SQ 5,000 unit BID YVAN Administration Ceftriaxone Sodium 1 gm/ 50 mls @ 100 mls/hr 07/04/18 06:00 07/05/18 09:54 Dextrose IVPB 100 mls/hr DAILY YVAN Administration Protocol Sodium Chloride 1,000 mls @ 100 mls/hr 07/05/18 08:00 07/05/18 08:09 Normal Saline - IV 100 mls/hr ASDIR YVAN Administration Laboratory Tests 07/04/18 07/04/18 07/05/18 13:20 13:21 10:10 Total Protein (PEP) Pending Urine Protein Urine Blood Protein/Creatinin Ratio Urine HCG, Qual Negative KAYCEE M-Nasir Pending HILARY Screen Pending c-ANCA Pending Proteinase 3 (PR3) Pending p-ANCA Pending Atypical p-ANCA Pending Myeloperoxidase Ab Pending Double Strand DNA Ab <1 Glomerular Base Memb Ab Pending Hepatitis A Ab Total Pending Hep Bs Antigen Pending Hep Bs Antibody Pending Hep B Core Total Ab Pending HCV Quantitation Pending 07/05/18 07/05/18 10:10 10:10 Total Protein (PEP) Urine Protein Negative Urine Blood 3+ H Protein/Creatinin Ratio 0.22 Urine HCG, Qual KAYCEE M-Nsair HILARY Screen c-ANCA Proteinase 3 (PR3) p-ANCA Atypical p-ANCA Myeloperoxidase Ab Double Strand DNA Ab Glomerular Base Memb Ab Hepatitis A Ab Total Hep Bs Antigen Hep Bs Antibody Hep B Core Total Ab HCV Quantitation Impression 1. AUBREE 2. hyperkalemia 3. HTN 4. nephrolithiasis 5. UTI 6. constipation Plan - cont with fluids - will increase rates - renal workup in progress - called IR for kidney biopsy as I would like them to review the images - urology evaluation - discussed plan with pt and family at length, she would like to avoid HD - will continue to monitor renal function - pts urine output has been improving, which is a good sign - phos is starting to improve - FEna is elevated at about 13, pt likely has ATN - will follow closely - follow cultures - bowel regimen Dr Leon
[2018-07-05] MEDS: DOCUSATE SODIUM 100 MG CAPSULE (FP) PO SCH ×2 (15:06→21:45)
[2018-07-05] MEDS: SODIUM CHLORIDE 1,000 ML IV SCH (15:06)
[2018-07-05 16:25] LABS: HBSAG SCREEN Negative (Negative); HEP A AB, IGM Negative (Negative); HEP B CORE AB, TOT Negative (Negative)
[2018-07-05] MEDS: RANITIDINE HCL 150 MG TABLET (FP) PO SCH ×2 (16:36→21:46)
[2018-07-05] MEDS ORDERED: ONDANSETRON 4 MG/2 ML VIAL IVPUSH PRN (21:56)
[2018-07-05] MEDS ORDERED: RANITIDINE HCL 150 MG TABLET (FP) PO SCH (22:00)
[2018-07-06 06:14] LABS: BASO % 1.2 % (0-2.0); EOS % 5.1 % (0-4.5); HEMATOCRIT 37.9 % (32.4-45.2); HEMOGLOBIN 12.4 GM/dL (10.7-15.3); LYMPH % 24.4 % (8-40); MCH 29.5 pg (25.7-33.7); MCHC 32.7 g/dl (32.0-36.0); MEAN CELL VOLUME 90.2 fl (80-96); MEAN PLT VOLUME 8.6 fl (7.5-11.1); MONO % 9.4 % (3.8-10.2); NEUT % 59.9 % (42.8-82.8); PLATELET COUNT 192 K/MM3 (134-434); RDW 12.8 % (11.6-15.6); WHITE BLOOD COUNT 6.5 K/mm3 (4.0-10.0)
[2018-07-06] MEDS ORDERED: cefTRIAXone SODIUM 1 GM VIAL ONE (07:52)
[2018-07-06] MEDS ORDERED: DEXTROSE 5%-WATER - 50 ML IVPB ONE (07:53)
[2018-07-06 07:56] LABS: ALBUMIN 2.8 g/dl (3.4-5.0); ALK PHOS 57 U/L (45-117); ANION GAP 11 MMOL/L (8-16); BILIRUBIN,TOTAL 0.3 mg/dL (0.2-1); BLOOD UREA NITROGEN 55 mg/dL (7-18); CALCIUM 8.1 mg/dL (8.5-10.1); CHLORIDE 105 mmol/L (98-107); CO2 21 mmol/L (21-32); GLUCOSE,RANDOM 86 mg/dL (74-106); PHOSPHOROUS 6.3 mg/dL (2.5-4.9); POTASSIUM 4.7 mmol/L (3.5-5.1); SGOT/AST 16 U/L (15-37); SGPT/ALT 17 U/L (13-61); SODIUM 137 mmol/L (136-145); TOT PROT 5.5 g/dl (6.4-8.2)
[2018-07-06] MEDS: CALCIUM ACETATE 667 MG CAPSULE (FP) PO SCH ×3 (07:59→18:05)
[2018-07-06 08:14] LABS: CREATININE 8.4 mg/dL (0.55-1.3)
--- NOTE | 2018-07-06 09:03 | CON.CARD ---
Cardiology Consult (text) - Consultation Consultation Note: Cardiology Consult Dictated IMP: Acute renal failure Asx Sinus Nitish REC: 1. D/C all AV lara agents 2. Echo 3. Tele Will follow
--- NOTE | 2018-07-06 09:38 | CONS ---
DATE OF CONSULTATION: 07/06/2018 REQUESTING PHYSICIAN: Nichole Jordan M.D. The consultation is requested by Dr. Nichole Jordan for bradycardia. HISTORY OF PRESENT ILLNESS: The patient is a 53-year-old woman who was admitted to [facility] on July 03 with left flank pain and found to be in acute renal failure. She has a past medical history of COPD and chronic hypertension. She reported feeling left flank pain with decreased appetite and also nausea and vomiting. She denied NSAID use; she has a history of right congenital kidney disease. She denied dysuria, hematuria, increased urination. No fevers or chills. She denies chest pain, shortness of breath. I was asked to see her for sinus bradycardia noted on ECG. Of note, her home medications include Toprol-XL 100 mg daily, which has been held. PAST MEDICAL HISTORY: Her past medical history is as above. ALLERGIES: She has no known drug allergies. MEDICATIONS: Her current medications include albuterol nebulizer p.r.n., amlodipine 10 mg daily, Phoslo, ceftriaxone, subcutaneous heparin for DVT prophylaxis, Zofran 4 mg IV every 6 hours p.r.n., Zantac 150 t.i.d. FAMILY HISTORY: Is noncontributory. SOCIAL HISTORY: Nonsmoker. PHYSICAL EXAMINATION: Vitals: Afebrile, pulse 56 regular, blood pressure 147/81, O2 saturation 98 on room air. HEENT: Anicteric, no bruits. Heart: S1, 2 regular. Chest: Clear. Abdomen: Soft, nontender. Extremities: No edema. Her 12-lead ECG showed sinus bradycardia at 50 beats per minute with no acute ST changes, normal axis, QTc 413 milliseconds. LABORATORY STUDIES: White count 6.5, hematocrit 37, platelets 192. Sodium 137, potassium 4.7, creatinine 8.4, TSH was 0.39. A CT scan of the abdomen and pelvis was performed to evaluate her flank pain showing a 4 mm non-obstructive renal calculus and atrophy of the right kidney. IMPRESSION: 1. Acute renal failure. 2. Asymptomatic sinus bradycardia. RECOMMENDATIONS: 1. Discontinue all AV lara agents. 2. Echocardiogram. 3. Continue telemetry. Will follow. STARLA MARLOW M.D. DIVYA/[id number]
[2018-07-06] MEDS: amLODIPine BESYLATE 10 MG TABLET (FP) PO SCH (09:59)
[2018-07-06] MEDS: DOCUSATE SODIUM 100 MG CAPSULE (FP) PO SCH ×2 (09:59→21:50)
[2018-07-06] MEDS: CEFTRIAXONE 1 GM in DEXTROSE 5%-WATER - 50 ML IVPB SCH (10:00)
[2018-07-06] MEDS: RANITIDINE HCL 150 MG TABLET (FP) PO SCH ×2 (10:00→21:50)
[2018-07-06] MEDS: HEPARIN NA (PORCINE) 5,000 UNITS/ML 1ML VIAL SQ SCH ×2 (10:01→21:50)
[2018-07-06 10:12] LABS: ANTIGLOMERULAR BASEMENT MEN.AB 2 units (0-20)
--- NOTE | 2018-07-06 11:31 | PN ---
Progress Note, Physician History of Present Illness: Pt seen and examined at bedside. She is awake and alert. She denies shortness of breath or lower ext edema. She feels that her appetite is starting to improve. - Current Medication List Current Medications: Active Medications Albuterol Sulfate (Ventolin 0.083% Nebulizer Soln -) 1 amp NEB Q1H PRN PRN Reason: SHORT OF BREATH/WHEEZING Last Admin: 07/04/18 14:50 Dose: 1 amp Amlodipine Besylate (Norvasc -) 10 mg PO DAILY [facility] Last Admin: 07/06/18 09:59 Dose: 10 mg Calcium Acetate (Phoslo -) 667 mg PO TIDCM [facility] Last Admin: 07/06/18 07:59 Dose: 667 mg Docusate Sodium (Colace -) 100 mg PO BID [facility] Last Admin: 07/06/18 09:59 Dose: 100 mg Heparin Sodium (Porcine) (Heparin -) 5,000 unit SQ BID [facility] Last Admin: 07/06/18 10:01 Dose: Not Given Ceftriaxone Sodium 1 gm/ (Dextrose) 50 mls @ 100 mls/hr IVPB DAILY [facility]; Protocol Last Admin: 07/06/18 10:00 Dose: 100 mls/hr Sodium Chloride (Normal Saline -) 1,000 mls @ 125 mls/hr IV ASDIR [facility] Last Admin: 07/05/18 15:06 Dose: 125 mls/hr Ondansetron HCl (Zofran Injection) 4 mg IVPUSH Q6H PRN PRN Reason: NAUSEA Last Admin: 07/05/18 22:12 Dose: 4 mg Ranitidine HCl (Zantac -) 150 mg PO BID [facility] Last Admin: 07/06/18 10:00 Dose: 150 mg - Objective Vital Signs: Vital Signs Temperature 98.2 F 07/06/18 08:59 Pulse Rate 56 L 07/06/18 08:59 Respiratory Rate 18 07/06/18 08:59 Blood Pressure 147/81 07/06/18 08:59 O2 Sat by Pulse Oximetry (%) 98 07/06/18 08:50 Constitutional: Yes: Calm Eyes: Yes: Conjunctiva Clear HENT: Yes: Atraumatic Neck: Yes: Supple Cardiovascular: Yes: S1, S2 Respiratory: Yes: CTA Bilaterally Gastrointestinal: Yes: Soft Genitourinary: Yes: WNL, Naik Present Musculoskeletal: Yes: WNL Edema: No Integumentary: Yes: WNL Neurological: Yes: Oriented Psychiatric: Yes: Oriented Labs: CBC, BMP 07/06/18 05:30 07/06/18 05:30 INR, PTT INR 0.90 (0.83-1.09) 07/05/18 05:30 Problem List - Problems (1) HTN (hypertension) Code(s): I10 - ESSENTIAL (PRIMARY) HYPERTENSION (2) COPD (chronic obstructive pulmonary disease) Code(s): J44.9 - CHRONIC OBSTRUCTIVE PULMONARY DISEASE, UNSPECIFIED (3) AUBREE (acute kidney injury) Code(s): N17.9 - ACUTE KIDNEY FAILURE, UNSPECIFIED Assessment/Plan Current Medications Generic Name Dose Route Start Last Admin Trade Name Freq PRN Reason Stop Dose Admin Albuterol Sulfate 1 amp 07/04/18 13:13 07/04/18 14:50 Ventolin 0.083% Nebulizer Soln - NEB 1 amp Q1H PRN Administration SHORT OF BREATH/WHEEZING Amlodipine Besylate 10 mg 07/04/18 10:00 07/06/18 09:59 Norvasc - PO 10 mg DAILY YVAN Administration Calcium Acetate 667 mg 07/04/18 17:30 07/06/18 07:59 Phoslo - PO 667 mg TIDCM YVAN Administration Docusate Sodium 100 mg 07/05/18 14:28 07/06/18 09:59 Colace - PO 100 mg BID YVAN Administration Heparin Sodium (Porcine) 5,000 unit 07/04/18 10:00 07/06/18 10:01 Heparin - SQ Not Given BID [facility] Ceftriaxone Sodium 1 gm/ 50 mls @ 100 mls/hr 07/04/18 06:00 07/06/18 10:00 Dextrose IVPB 100 mls/hr DAILY YVAN Administration Protocol Sodium Chloride 1,000 mls @ 125 mls/hr 07/05/18 14:27 07/05/18 15:06 Normal Saline - IV 125 mls/hr ASDIR YVAN Administration Ondansetron HCl 4 mg 07/05/18 21:56 07/05/18 22:12 Zofran Injection IVPUSH 4 mg Q6H PRN Administration NAUSEA Ranitidine HCl 150 mg 07/05/18 16:30 07/06/18 10:00 Zantac - PO 150 mg BID YVAN Administration Laboratory Tests 07/04/18 07/04/18 07/05/18 13:20 13:21 17:15 BUN Creatinine KAYCEE M-Nasir Pending HILARY Screen Negative c-ANCA Pending Proteinase 3 (PR3) Pending p-ANCA Pending Atypical p-ANCA Pending Myeloperoxidase Ab Pending SS-A/Ro Antibody Pending SS-B/La Antibody Pending Double Strand DNA Ab <1 Glomerular Base Memb Ab 2 Complement C3 Pending Complement C4 Pending Free Tice LC, Quant Free Lambda LC, Quant Free Tice/Lambda Ratio Hepatitis A Ab Total Positive H Hep Bs Antigen Negative Hep Bs Antibody Reactive Hep B Core Total Ab Negative HCV Quantitation Pending 07/06/18 07/06/18 05:30 05:30 BUN 55 H Creatinine 8.4 H* KAYCEE M-Nasir HILARY Screen c-ANCA Proteinase 3 (PR3) p-ANCA Atypical p-ANCA Myeloperoxidase Ab SS-A/Ro Antibody SS-B/La Antibody Double Strand DNA Ab Glomerular Base Memb Ab Complement C3 Complement C4 Free Tice LC, Quant Pending Free Lambda LC, Quant Pending Free Tice/Lambda Ratio Pending Hepatitis A Ab Total Hep Bs Antigen Hep Bs Antibody Hep B Core Total Ab HCV Quantitation Impression 1. AUBREE likely from ATN 2. hyperkalemia 3. HTN 4. nephrolithiasis 5. UTI 6. constipation 7. bradycardia Plan - renal function is starting to improve - pt has good urine output - repeat labs in am - serologic workup is in progress - renal scan consistent with ATN as well - repeat phos level in am - discussed kidney biopsy with IR, will wait for serologies and hold off for now as her renal function is starting to improve - plan discussed with pt at length - follow up echo Dr Leon
--- NOTE | 2018-07-06 12:20 | PN ---
Progress Note (short form) - Note Progress Note: family at bedside pt feels tired appetite better had a bm Selected Entries 07/06/18 08:59 Temperature 98.2 F Pulse Rate 56 L Respiratory 18 Rate Blood Pressure 147/81 Laboratory Tests 07/06/18 07/06/18 05:30 05:30 WBC 6.5 Hgb 12.4 Hct 37.9 MCV 90.2 Plt Count 192 Sodium 137 Potassium 4.7 Chloride 105 Carbon Dioxide 21 Anion Gap 11 BUN 55 H Creatinine 8.4 H* Random Glucose 86 Calcium 8.1 L Phosphorus 6.3 H Total Protein 5.5 L Albumin 2.8 L TSH 0.39 Free T4 0.96 s1 s2 RRR Lungs clear Abd- soft, NT No edema Naik+ PLAN worsening renal function pt refusing dialysis pt has good urine output Add nepro cardiology eval noted Telemetry
--- NOTE | 2018-07-06 13:38 | ECHO ---
Version: 1 Name: JALEESA BROWN Exam: Adult Echocardiogram Study Date: 07/06/2018, 11:15 AM Age: 53 Years MMode/2D Measurements & Calculations IVSd: 0.68 cm LVIDs: 2.8 cm LVIDd: 4.9 cm LVPWd: 0.78 cm ACS: 1.58 cm Ao root diam: 3.1 cm LA dimension: 2.9 cm Doppler Measurements & Calculations MV E max efren: 90.1 cm/sec Med E/e': 11.3 MV A max efren: 51.8 cm/sec Med Peak E' Efren: 8.0 cm/sec MV E/A: 1.74 Lat E/e': 9.3 Lat Peak E' Efren: 9.7 cm/sec MR max P.2 mmHg Ao max P.8 mmHg Ao mean PG: Invalid Ao V2 max: 109.5 cm/sec Procedure A two-dimensional transthoracic echocardiogram with color flow and Doppler was performed. Left Ventricle The left ventricular size, thickness and function are normal. The left ventricular ejection fraction is normal. The left ventricular wall motion is normal. Right Ventricle The right ventricle is normal in size and function. Atria Normal left and right atrial size and function. Mitral Valve There is mild mitral valve thickening. There is no mitral valve stenosis. There is trace to mild kalani ral regurgitation. Tricuspid Valve There is mild tricuspid valve thickening. There is no tricuspid stenosis. There was insufficient TR detected to calculate RV systolic pressure. Aortic Valve The aortic valve is not well visualized. No hemodynamically significant valvular aortic stenosis. Mi ld aortic regurgitation. Summary Statements The left ventricular size, thickness and function are normal The left ventricular ejection fraction is normal. The left ventricular wall motion is normal. Mild aortic regurgitation. There is trace to mild mitral regurgitation. There was insufficient TR detected to calculate RV systolic pressure. MD Lan Malendowicz 07/06/2018, 1:38 PM Ordering Physician: Saran Bermeo Referring Physician: Eden Salinas Performed By: Re Garcia
[2018-07-06] MEDS: SODIUM CHLORIDE 1,000 ML IV SCH (18:22)
[2018-07-07] MEDS: SODIUM CHLORIDE 1,000 ML IV SCH (00:45)
[2018-07-07 07:09] LABS: ALBUMIN 2.8 g/dl (3.4-5.0); ALK PHOS 63 U/L (45-117); ANION GAP 10 MMOL/L (8-16); BILIRUBIN,TOTAL 0.3 mg/dL (0.2-1); BLOOD UREA NITROGEN 50 mg/dL (7-18); CHLORIDE 111 mmol/L (98-107); CO2 22 mmol/L (21-32); GLUCOSE,RANDOM 83 mg/dL (74-106); MAGNESIUM 1.9 mg/dL (1.8-2.4); PHOSPHOROUS 5.7 mg/dL (2.5-4.9); POTASSIUM 4.9 mmol/L (3.5-5.1); SGOT/AST 12 U/L (15-37); SGPT/ALT 16 U/L (13-61); SODIUM 143 mmol/L (136-145); TOT PROT 5.7 g/dl (6.4-8.2)
[2018-07-07 07:11] LABS: CREATININE 7.4 mg/dL (0.55-1.3)
[2018-07-07] MEDS: CALCIUM ACETATE 667 MG CAPSULE (FP) PO SCH ×3 (08:04→18:01)
[2018-07-07] MEDS ORDERED: cefTRIAXone SODIUM 1 GM VIAL ONE (08:38)
[2018-07-07] MEDS ORDERED: DEXTROSE 5%-WATER - 50 ML IVPB ONE (08:39)
--- NOTE | 2018-07-07 08:57 | PN ---
Progress Note, Physician Chief Complaint: Bradycardia resolving. Echo normal ROS: denies cp, SOB dizziness. - Current Medication List Current Medications: Active Medications Albuterol Sulfate (Ventolin 0.083% Nebulizer Soln -) 1 amp NEB Q1H PRN PRN Reason: SHORT OF BREATH/WHEEZING Last Admin: 07/04/18 14:50 Dose: 1 amp Amlodipine Besylate (Norvasc -) 10 mg PO DAILY [facility] Last Admin: 07/06/18 09:59 Dose: 10 mg Calcium Acetate (Phoslo -) 667 mg PO TIDCM [facility] Last Admin: 07/07/18 08:04 Dose: 667 mg Docusate Sodium (Colace -) 100 mg PO BID [facility] Last Admin: 07/06/18 21:50 Dose: 100 mg Heparin Sodium (Porcine) (Heparin -) 5,000 unit SQ BID [facility] Last Admin: 07/06/18 21:50 Dose: Not Given Ceftriaxone Sodium 1 gm/ (Dextrose) 50 mls @ 100 mls/hr IVPB DAILY [facility]; Protocol Last Admin: 07/06/18 10:00 Dose: 100 mls/hr Sodium Chloride (Normal Saline -) 1,000 mls @ 125 mls/hr IV ASDIR [facility] Last Admin: 07/07/18 00:45 Dose: 125 mls/hr Ondansetron HCl (Zofran Injection) 4 mg IVPUSH Q6H PRN PRN Reason: NAUSEA Last Admin: 07/05/18 22:12 Dose: 4 mg Ranitidine HCl (Zantac -) 150 mg PO BID [facility] Last Admin: 07/06/18 21:50 Dose: 150 mg - Objective Vital Signs: Vital Signs Temperature 97.8 F 07/07/18 08:22 Pulse Rate 63 07/07/18 08:22 Respiratory Rate 18 07/07/18 08:22 Blood Pressure 127/67 07/07/18 08:22 O2 Sat by Pulse Oximetry (%) 98 07/07/18 08:22 Constitutional: Yes: Calm Cardiovascular: Yes: Regular Rate and Rhythm Respiratory: Yes: CTA Bilaterally Gastrointestinal: Yes: Soft Edema: No Neurological: Yes: Alert, Oriented ...Motor Strength: WNL Labs: CBC, BMP 07/06/18 05:30 07/07/18 05:30 INR, PTT INR 0.90 (0.83-1.09) 07/05/18 05:30 Laboratory Tests 07/07/18 05:30 Sodium 143 Potassium 4.9 BUN 50 H Creatinine 7.4 H* - ....Imaging EKG: Image Reviewed Assessment/Plan IMP: Acute renal failure Asx Sinus Ricardo: normal echo REC: 1. Sinus ricardo, asx, resolving. May have been due to lingering effect of Metoprolol Succinate. Zofran can also cause bradycardia- would d/c it if possible or use sparingly. 2. Observed patient ambulate across room - heart rate increases to mid 70s. Can d/c telemetry. 3. Further work up as per Renal- bx planned.
[2018-07-07] MEDS: CEFTRIAXONE 1 GM in DEXTROSE 5%-WATER - 50 ML IVPB SCH (09:23)
[2018-07-07] MEDS: RANITIDINE HCL 150 MG TABLET (FP) PO SCH ×2 (09:24→21:45)
[2018-07-07] MEDS: DOCUSATE SODIUM 100 MG CAPSULE (FP) PO SCH ×2 (09:24→21:45)
[2018-07-07] MEDS: amLODIPine BESYLATE 10 MG TABLET (FP) PO SCH (09:24)
[2018-07-07] MEDS: HEPARIN NA (PORCINE) 5,000 UNITS/ML 1ML VIAL SQ SCH ×2 (09:25→21:46)
--- NOTE | 2018-07-07 12:14 | PN ---
Progress Note (short form) - Note Progress Note: better today Vital Signs - 24 hr 07/06/18 07/06/18 07/06/18 14:20 17:00 20:13 Temperature 98.4 F 98.2 F Pulse Rate 58 L 58 L Respiratory 18 18 Rate Blood Pressure 125/71 110/55 L O2 Sat by Pulse 98 Oximetry (%) 07/06/18 07/07/18 07/07/18 22:00 02:00 05:36 Temperature 98.2 F 98.4 F 97.9 F Pulse Rate 58 L 58 L 56 L Respiratory 18 18 18 Rate Blood Pressure 138/71 130/67 137/72 O2 Sat by Pulse Oximetry (%) 07/07/18 08:22 Temperature 97.8 F Pulse Rate 63 Respiratory 18 Rate Blood Pressure 127/67 O2 Sat by Pulse 98 Oximetry (%) Current Medications Generic Name Dose Route Start Last Admin Trade Name Freq PRN Reason Stop Dose Admin Albuterol Sulfate 1 amp 07/04/18 13:13 07/04/18 14:50 Ventolin 0.083% Nebulizer Soln - NEB 1 amp Q1H PRN Administration SHORT OF BREATH/WHEEZING Amlodipine Besylate 10 mg 07/04/18 10:00 07/07/18 09:24 Norvasc - PO 10 mg DAILY YVAN Administration Calcium Acetate 667 mg 07/04/18 17:30 07/07/18 11:52 Phoslo - PO 667 mg TIDCM YVAN Administration Docusate Sodium 100 mg 07/05/18 14:28 07/07/18 09:24 Colace - PO 100 mg BID YVAN Administration Heparin Sodium (Porcine) 5,000 unit 07/04/18 10:00 07/07/18 09:25 Heparin - SQ Not Given BID YVAN Ceftriaxone Sodium 1 gm/ 50 mls @ 100 mls/hr 07/04/18 06:00 07/07/18 09:23 Dextrose IVPB 100 mls/hr DAILY YVAN Administration Protocol Sodium Chloride 1,000 mls @ 125 mls/hr 07/05/18 14:27 07/07/18 00:45 Normal Saline - IV 125 mls/hr ASDIR YVAN Administration Ondansetron HCl 4 mg 07/05/18 21:56 07/05/18 22:12 Zofran Injection IVPUSH 4 mg Q6H PRN Administration NAUSEA Ranitidine HCl 150 mg 07/05/18 16:30 07/07/18 09:24 Zantac - PO 150 mg BID YVAN Administration Laboratory Results - last 24 hr 07/04/18 07/07/18 13:21 05:30 Sodium 143 Potassium 4.9 Chloride 111 H Carbon Dioxide 22 Anion Gap 10 BUN 50 H Creatinine 7.4 H* Creat Clearance w eGFR 5.76 Random Glucose 83 Calcium 8.0 L Phosphorus 5.7 H Magnesium 1.9 Total Bilirubin 0.3 AST 12 L ALT 16 Alkaline Phosphatase 63 Total Protein 5.7 L Total Protein (PEP) 6.1 Albumin 2.8 L Albumin (PEP) 3.2 Globulin 2.9 Albumin/Globulin Ratio 1.1 Beta Globulins 1.0 KAYCEE M-Nasir Not observed Lungs clear Abd- soft, NT No edema Naik+ PLAN renal scan noted renal function getting better continue with iv fluids on iv antibiotics- s/p lithotripsy ok to transfer to floor OOB
--- NOTE | 2018-07-07 15:23 | PN ---
Progress Note, Physician History of Present Illness: Pt seen and examined at bedside. She is awake and alert. She feels that her appetite is improving. She denies dyspnea. - Current Medication List Current Medications: Active Medications Albuterol Sulfate (Ventolin 0.083% Nebulizer Soln -) 1 amp NEB Q1H PRN PRN Reason: SHORT OF BREATH/WHEEZING Last Admin: 07/04/18 14:50 Dose: 1 amp Amlodipine Besylate (Norvasc -) 10 mg PO DAILY [facility] Last Admin: 07/07/18 09:24 Dose: 10 mg Calcium Acetate (Phoslo -) 667 mg PO TIDCM [facility] Last Admin: 07/07/18 11:52 Dose: 667 mg Docusate Sodium (Colace -) 100 mg PO BID [facility] Last Admin: 07/07/18 09:24 Dose: 100 mg Heparin Sodium (Porcine) (Heparin -) 5,000 unit SQ BID [facility] Last Admin: 07/07/18 09:25 Dose: Not Given Ceftriaxone Sodium 1 gm/ (Dextrose) 50 mls @ 100 mls/hr IVPB DAILY [facility]; Protocol Last Admin: 07/07/18 09:23 Dose: 100 mls/hr Sodium Chloride (Normal Saline -) 1,000 mls @ 125 mls/hr IV ASDIR [facility] Last Admin: 07/07/18 00:45 Dose: 125 mls/hr Ondansetron HCl (Zofran Injection) 4 mg IVPUSH Q6H PRN PRN Reason: NAUSEA Last Admin: 07/05/18 22:12 Dose: 4 mg Ranitidine HCl (Zantac -) 150 mg PO BID [facility] Last Admin: 07/07/18 09:24 Dose: 150 mg - Objective Vital Signs: Vital Signs Temperature 97.8 F 07/07/18 08:22 Pulse Rate 63 07/07/18 08:22 Respiratory Rate 18 07/07/18 08:22 Blood Pressure 127/67 07/07/18 08:22 O2 Sat by Pulse Oximetry (%) 98 07/07/18 08:22 Constitutional: Yes: Calm Eyes: Yes: Conjunctiva Clear HENT: Yes: Atraumatic Neck: Yes: Supple Cardiovascular: Yes: S1, S2 Respiratory: Yes: CTA Bilaterally Gastrointestinal: Yes: Normal Bowel Sounds, Soft Genitourinary: Yes: Naik Present Edema: No Neurological: Yes: Oriented Psychiatric: Yes: Oriented Labs: CBC, BMP 07/06/18 05:30 07/07/18 05:30 INR, PTT INR 0.90 (0.83-1.09) 07/05/18 05:30 Problem List - Problems (1) HTN (hypertension) Code(s): I10 - ESSENTIAL (PRIMARY) HYPERTENSION (2) COPD (chronic obstructive pulmonary disease) Code(s): J44.9 - CHRONIC OBSTRUCTIVE PULMONARY DISEASE, UNSPECIFIED (3) AUBREE (acute kidney injury) Code(s): N17.9 - ACUTE KIDNEY FAILURE, UNSPECIFIED Assessment/Plan Current Medications Generic Name Dose Route Start Last Admin Trade Name Freq PRN Reason Stop Dose Admin Albuterol Sulfate 1 amp 07/04/18 13:13 07/04/18 14:50 Ventolin 0.083% Nebulizer Soln - NEB 1 amp Q1H PRN Administration SHORT OF BREATH/WHEEZING Amlodipine Besylate 10 mg 07/04/18 10:00 07/07/18 09:24 Norvasc - PO 10 mg DAILY [facility] Administration Calcium Acetate 667 mg 07/04/18 17:30 07/07/18 11:52 Phoslo - PO 667 mg TIDCM [facility] Administration Docusate Sodium 100 mg 07/05/18 14:28 07/07/18 09:24 Colace - PO 100 mg BID [facility] Administration Heparin Sodium (Porcine) 5,000 unit 07/04/18 10:00 07/07/18 09:25 Heparin - SQ Not Given BID [facility] Ceftriaxone Sodium 1 gm/ 50 mls @ 100 mls/hr 07/04/18 06:00 07/07/18 09:23 Dextrose IVPB 100 mls/hr DAILY [facility] Administration Protocol Sodium Chloride 1,000 mls @ 125 mls/hr 07/05/18 14:27 07/07/18 00:45 Normal Saline - IV 125 mls/hr ASDIR [facility] Administration Ondansetron HCl 4 mg 07/05/18 21:56 07/05/18 22:12 Zofran Injection IVPUSH 4 mg Q6H PRN Administration NAUSEA Ranitidine HCl 150 mg 07/05/18 16:30 07/07/18 09:24 Zantac - PO 150 mg BID [facility] Administration Laboratory Tests 07/04/18 13:21 KAYCEE M-Nasir Not observed HILARY Screen Negative Double Strand DNA Ab <1 Glomerular Base Memb Ab 2 Impression 1. AUBREE likely from ATN 2. hyperkalemia 3. HTN 4. nephrolithiasis 5. UTI 6. constipation 7. bradycardia Plan - renal function continues to improve - likely resolving ATN - hold fluids for a few hours - restart 1/2 ns at 50 cc and repeat labs in am - renal workup in progress - cont abx Dr Leon
[2018-07-07 17:36] LABS: ATYPICAL pANCA <1:20 titer (Neg:<1:20); C-ANCA <1:20 titer (Neg:<1:20); P-ANCA <1:20 titer (Neg:<1:20)
[2018-07-07] MEDS ORDERED: SODIUM CHLORIDE 0.45% 1,000 ML IV SCH (22:00)
[2018-07-08 00:08] LABS: FREE KAPPA,SERUM 30.9 mg/L (3.3-19.4)
[2018-07-08] MEDS ORDERED: SODIUM CHLORIDE 0.45% 1,000 ML IV SCH ×2 (07:40→07:45)
[2018-07-08 08:33] LABS: ALBUMIN 2.8 g/dl (3.4-5.0); ALK PHOS 74 U/L (45-117); ANION GAP 12 MMOL/L (8-16); BILIRUBIN,TOTAL 0.3 mg/dL (0.2-1); BLOOD UREA NITROGEN 50 mg/dL (7-18); CALCIUM 8.3 mg/dL (8.5-10.1); CHLORIDE 109 mmol/L (98-107); CO2 22 mmol/L (21-32); GLUCOSE,RANDOM 84 mg/dL (74-106); POTASSIUM 4.4 mmol/L (3.5-5.1); SGOT/AST 13 U/L (15-37); SGPT/ALT 18 U/L (13-61); SODIUM 143 mmol/L (136-145); TOT PROT 5.6 g/dl (6.4-8.2)
[2018-07-08] MEDS: CALCIUM ACETATE 667 MG CAPSULE (FP) PO SCH ×3 (08:50→18:00)
[2018-07-08] MEDS ORDERED: PT OWN MED DRAWER 7, Y5N ONE (09:15)
[2018-07-08] MEDS ORDERED: cefTRIAXone SODIUM 1 GM VIAL ONE (09:16)
[2018-07-08] MEDS ORDERED: DEXTROSE 5%-WATER - 50 ML IVPB ONE (09:16)
[2018-07-08] MEDS: amLODIPine BESYLATE 10 MG TABLET (FP) PO SCH (09:47)
[2018-07-08] MEDS: DOCUSATE SODIUM 100 MG CAPSULE (FP) PO SCH ×2 (09:47→21:14)
[2018-07-08] MEDS: CEFTRIAXONE 1 GM in DEXTROSE 5%-WATER - 50 ML IVPB SCH (09:48)
[2018-07-08] MEDS: RANITIDINE HCL 150 MG TABLET (FP) PO SCH ×2 (09:48→21:14)
[2018-07-08] MEDS: HEPARIN NA (PORCINE) 5,000 UNITS/ML 1ML VIAL SQ SCH ×2 (09:49→21:14)
[2018-07-08 09:58] LABS: URINE APPEARANCE CLEAR; URINE BILIRUBIN NEGATIVE (<2.0 mg/dL); URINE COLOR COLORLESS; URINE GLUCOSE (UA) NEGATIVE (NEGATIVE); URINE KETONE NEGATIVE (NEGATIVE); URINE LEUK ESTERASE TRACE (NEGATIVE); URINE NITRITE NEGATIVE (NEGATIVE); URINE PROTEIN NEGATIVE (NEGATIVE); URINE UROBILINOGEN NEGATIVE mg/dL (0.2-1.0)
[2018-07-08 10:18] LABS: EPI CELLS RARE /HPF (FEW); URINE MUCUS RARE
[2018-07-08] MEDS ORDERED: INSULIN (NOVOLOG) ASPART 100 UNITS/ML 10ML VIAL ONE (11:41)
--- NOTE | 2018-07-08 12:20 | PN ---
Progress Note, Physician History of Present Illness: Pt seen and examined at bedside. She is awake and alert. She denies shortness of breath. - Current Medication List Current Medications: Active Medications Albuterol Sulfate (Ventolin 0.083% Nebulizer Soln -) 1 amp NEB Q1H PRN PRN Reason: SHORT OF BREATH/WHEEZING Last Admin: 07/04/18 14:50 Dose: 1 amp Amlodipine Besylate (Norvasc -) 10 mg PO DAILY [facility] Last Admin: 07/08/18 09:47 Dose: 10 mg Calcium Acetate (Phoslo -) 667 mg PO TIDCM [facility] Last Admin: 07/08/18 08:50 Dose: 667 mg Docusate Sodium (Colace -) 100 mg PO BID [facility] Last Admin: 07/08/18 09:47 Dose: 100 mg Heparin Sodium (Porcine) (Heparin -) 5,000 unit SQ BID [facility] Last Admin: 07/08/18 09:49 Dose: Not Given Ceftriaxone Sodium 1 gm/ (Dextrose) 50 mls @ 100 mls/hr IVPB DAILY [facility]; Protocol Last Admin: 07/08/18 09:48 Dose: 100 mls/hr Sodium Chloride (1/2 Normal Saline) 1,000 mls @ 83 mls/hr IV ASDIR [facility] Ondansetron HCl (Zofran Injection) 4 mg IVPUSH Q6H PRN PRN Reason: NAUSEA Last Admin: 07/05/18 22:12 Dose: 4 mg Ranitidine HCl (Zantac -) 150 mg PO BID [facility] Last Admin: 07/08/18 09:48 Dose: 150 mg - Objective Vital Signs: Vital Signs Temperature 97.8 F 07/08/18 06:00 Pulse Rate 58 L 07/08/18 06:00 Respiratory Rate 18 07/08/18 06:00 Blood Pressure 126/57 L 07/08/18 06:00 O2 Sat by Pulse Oximetry (%) 97 07/07/18 21:00 Constitutional: Yes: Calm Eyes: Yes: Conjunctiva Clear HENT: Yes: Atraumatic Neck: Yes: Supple Cardiovascular: Yes: S1, S2 Respiratory: Yes: CTA Bilaterally Gastrointestinal: Yes: Soft Genitourinary: Yes: Marie Present Musculoskeletal: Yes: WNL Edema: No Integumentary: Yes: WNL Neurological: Yes: Oriented Psychiatric: Yes: Oriented Labs: CBC, BMP 07/06/18 05:30 07/08/18 06:50 INR, PTT INR 0.90 (0.83-1.09) 07/05/18 05:30 Problem List - Problems (1) HTN (hypertension) Code(s): I10 - ESSENTIAL (PRIMARY) HYPERTENSION (2) COPD (chronic obstructive pulmonary disease) Code(s): J44.9 - CHRONIC OBSTRUCTIVE PULMONARY DISEASE, UNSPECIFIED (3) AUBREE (acute kidney injury) Code(s): N17.9 - ACUTE KIDNEY FAILURE, UNSPECIFIED Assessment/Plan Current Medications Generic Name Dose Route Start Last Admin Trade Name Freq PRN Reason Stop Dose Admin Albuterol Sulfate 1 amp 07/04/18 13:13 07/04/18 14:50 Ventolin 0.083% Nebulizer Soln - NEB 1 amp Q1H PRN Administration SHORT OF BREATH/WHEEZING Amlodipine Besylate 10 mg 07/04/18 10:00 07/08/18 09:47 Norvasc - PO 10 mg DAILY [facility] Administration Calcium Acetate 667 mg 07/04/18 17:30 07/08/18 08:50 Phoslo - PO 667 mg TIDCM [facility] Administration Docusate Sodium 100 mg 07/05/18 14:28 07/08/18 09:47 Colace - PO 100 mg BID [facility] Administration Heparin Sodium (Porcine) 5,000 unit 07/04/18 10:00 07/08/18 09:49 Heparin - SQ Not Given BID [facility] Ceftriaxone Sodium 1 gm/ 50 mls @ 100 mls/hr 07/04/18 06:00 07/08/18 09:48 Dextrose IVPB 100 mls/hr DAILY [facility] Administration Protocol Sodium Chloride 1,000 mls @ 83 mls/hr 07/08/18 07:45 1/2 Normal Saline IV ASDIR [facility] Ondansetron HCl 4 mg 07/05/18 21:56 07/05/18 22:12 Zofran Injection IVPUSH 4 mg Q6H PRN Administration NAUSEA Ranitidine HCl 150 mg 07/05/18 16:30 07/08/18 09:48 Zantac - PO 150 mg BID [facility] Administration Laboratory Tests 07/04/18 07/05/18 07/06/18 13:21 17:15 05:30 Urine Protein Urine Blood KAYCEE M-Nasir Not observed HILARY Screen Negative c-ANCA <1:20 Proteinase 3 (PR3) <3.5 p-ANCA <1:20 Atypical p-ANCA <1:20 Myeloperoxidase Ab <9.0 Double Strand DNA Ab <1 Glomerular Base Memb Ab 2 Complement C3 130 Complement C4 23 Free [place] LC, Quant 30.9 H Free Lambda LC, Quant 25.4 Free [place]/Lambda Ratio 1.22 07/08/18 08:40 Urine Protein Negative Urine Blood 2+ H KAYCEE M-Nasir HILARY Screen c-ANCA Proteinase 3 (PR3) p-ANCA Atypical p-ANCA Myeloperoxidase Ab Double Strand DNA Ab Glomerular Base Memb Ab Complement C3 Complement C4 Free [place] LC, Quant Free Lambda LC, Quant Free [place]/Lambda Ratio Impression 1. AUBREE likely from ATN 2. hyperkalemia 3. HTN 4. nephrolithiasis 5. UTI 6. constipation 7. bradycardia Plan - renal function is improving - repeat labs in am - cont fluids - can d/c marie - hematology eval for elevated kappa chain - likely resolving ATN - renal workup in progress Dr Leon
--- NOTE | 2018-07-08 12:27 | PN ---
Progress Note (short form) - Note Progress Note: pt seen/ examined chart reviewed Family at bedside creatinine continued to slowly Naik DC'd Discussed with data entry machine operator today in detail Patient overall feels better. Vital Signs Temp 97.8 F 07/08/18 06:00 Pulse 58 L 07/08/18 06:00 Resp 18 07/08/18 06:00 BP 126/57 L 07/08/18 06:00 Pulse Ox 97 07/07/18 21:00 Intake & Output 07/07/18 07/08/18 07/08/18 23:59 11:59 23:59 Intake Total 1780 Output Total 2900 1000 Balance -1120 -1000 Intake: IV 1500 Normal Saline - 1,000 ml 1500 @ 125 mls/hr IV ASDIR [facility] Rx#:[id number] IVPB 100 Oral 180 Output: Urine 2900 1000 Naik 2900 1000 Other: Voiding Method Indwelling Catheter Indwelling Catheter Bowel Movement Yes # Bowel Movements 1 Active Medications Albuterol Sulfate (Ventolin 0.083% Nebulizer Soln -) 1 amp NEB Q1H PRN PRN Reason: SHORT OF BREATH/WHEEZING Last Admin: 07/04/18 14:50 Dose: 1 amp Amlodipine Besylate (Norvasc -) 10 mg PO DAILY [facility] Last Admin: 07/08/18 09:47 Dose: 10 mg Calcium Acetate (Phoslo -) 667 mg PO TIDCM [facility] Last Admin: 07/08/18 08:50 Dose: 667 mg Docusate Sodium (Colace -) 100 mg PO BID [facility] Last Admin: 07/08/18 09:47 Dose: 100 mg Heparin Sodium (Porcine) (Heparin -) 5,000 unit SQ BID [facility] Last Admin: 07/08/18 09:49 Dose: Not Given Ceftriaxone Sodium 1 gm/ (Dextrose) 50 mls @ 100 mls/hr IVPB DAILY [facility]; Protocol Last Admin: 07/08/18 09:48 Dose: 100 mls/hr Sodium Chloride (1/2 Normal Saline) 1,000 mls @ 75 mls/hr IV ASDIR [facility] Ondansetron HCl (Zofran Injection) 4 mg IVPUSH Q6H PRN PRN Reason: NAUSEA Last Admin: 07/05/18 22:12 Dose: 4 mg Ranitidine HCl (Zantac -) 150 mg PO BID [facility] Last Admin: 07/08/18 09:48 Dose: 150 mg CBC, BMP 07/06/18 05:30 07/08/18 06:50 Microbiology 07/04/18 21:00 Blood Culture - Preliminary Blood - Peripheral Venous NO GROWTH OBTAINED AFTER 72 HOURS, INCUBATION TO CONTINUE FOR 2 DAYS. 07/04/18 19:15 Blood Culture - Preliminary Blood - Peripheral Venous NO GROWTH OBTAINED AFTER 72 HOURS, INCUBATION TO CONTINUE FOR 2 DAYS. physical exam Constitutional: Yes: No Distress, Calm and comfortable Eyes: Yes: Conjunctiva Clear Neck: Yes: Supple Respiratory: Yes: CTA Bilaterally Gastrointestinal: Yes: Normal Bowel Sounds, Soft, non tender Edema: No Neurological: Yes: Alert Psychiatric: Yes: Alert Assessment/Plan better Discussed with Ocean Export Account Manager Fluids Abx---DC urine culture negative daily out of bed to chair Avoid NSAIDs Will follow Problem List - Problems (1) UTI (urinary tract infection) Code(s): N39.0 - URINARY TRACT INFECTION, SITE NOT SPECIFIED (2) AUBREE (acute kidney injury) Code(s): N17.9 - ACUTE KIDNEY FAILURE, UNSPECIFIED (3) HTN (hypertension) Code(s): I10 - ESSENTIAL (PRIMARY) HYPERTENSION
[2018-07-08] MEDS: SODIUM CHLORIDE 0.45% 1,000 ML IV SCH ×2 (12:47→16:38)
--- NOTE | 2018-07-08 15:52 | PN ---
Progress Note (short form) - Note Progress Note: UROLOGY NOTE. pt. with no evidence of obstructive uropathy. has microhematuria and a 4mm rt. renal stone. will need g/u w/u as o/p
--- NOTE | 2018-07-09 00:30 | CONSULT ---
Consult - text type - Consultation Consultation Note: The patient is a 53-year-old female with past medical history significant for COPD, HTN, hx of Kidney stones (s/p lithotripsy 5 years ago), and bowel obstruction (20 years ago with a portion of large intestine removal) presents to the emergency department with L. flank pain, nausea and decreased appetite. The patient presents with 2 days of symptoms. Denies chest pain, shortness of breath, trauma, recent travel, sick constant, diarrhea, dysuria, hematuria, frequency or urgency to urinate, fever, chills or dizziness. Allergies: NKA Social history: No past or present use of tobacco, alcohol or recreational drugs. Surgical history: lithotripsy and partial L. intestine removed. Family history -- aunt had lupus. father had ?? prostate cancer Last Vital Signs Temp Pulse Resp BP Pulse Ox 98.5 F 60 20 130/60 98 07/09/18 07:11 07/09/18 07:11 07/09/18 07:11 07/09/18 07:11 07/08/18 21:00 anasarca Cor: RSR, No murmurs, No gallops Lungs: Clear to P&A Abd: Soft, Normal bowel sounds, No organomegaly Ext:No significant edema Active Medications Generic Name Dose Route Start Last Admin Trade Name Freq PRN Reason Stop Dose Admin Albuterol Sulfate 1 amp 07/04/18 13:13 07/04/18 14:50 Ventolin 0.083% Nebulizer Soln - NEB 1 amp Q1H PRN Administration SHORT OF BREATH/WHEEZING Amlodipine Besylate 10 mg 07/04/18 10:00 07/09/18 09:19 Norvasc - PO 10 mg DAILY [facility] Administration Calcium Acetate 667 mg 07/04/18 17:30 07/09/18 08:21 Phoslo - PO 667 mg TIDCM [facility] Administration Docusate Sodium 100 mg 07/05/18 14:28 07/09/18 09:19 Colace - PO Not Given BID [facility] Heparin Sodium (Porcine) 5,000 unit 07/04/18 10:00 07/09/18 09:20 Heparin - SQ Not Given BID [facility] Sodium Chloride 1,000 mls @ 75 mls/hr 07/08/18 12:20 07/09/18 06:07 1/2 Normal Saline IV 75 mls/hr ASDIR [facility] Administration Ondansetron HCl 4 mg 07/05/18 21:56 07/05/18 22:12 Zofran Injection IVPUSH 4 mg Q6H PRN Administration NAUSEA Ranitidine HCl 150 mg 07/05/18 16:30 07/09/18 09:20 Zantac - PO 150 mg BID [facility] Administration A/P 53 y/o patient with 1. AUBREE -- slowly improving/ renal w/u in progress 2. hyperkalemia 3. HTN 4. nephrolithiasis 5. UTI 6. constipation 7. bradycardia SIFE --normal SFLCA --normal. Mildly elevated kappa which can be seen in renal failure. No suggestion of myeloma
[2018-07-09] MEDS: SODIUM CHLORIDE 0.45% 1,000 ML IV SCH ×2 (06:07→19:35)
[2018-07-09 07:35] LABS: BASO % 1.4 % (0-2.0); HEMOGLOBIN 12.4 GM/dL (10.7-15.3); LYMPH % 24.7 % (8-40); MCH 29.8 pg (25.7-33.7); MCHC 33.6 g/dl (32.0-36.0); MEAN CELL VOLUME 88.7 fl (80-96); MEAN PLT VOLUME 8.2 fl (7.5-11.1); NEUT % 61.9 % (42.8-82.8); PLATELET COUNT 230 K/MM3 (134-434); RBC 4.17 M/mm3 (3.60-5.2); RDW 12.8 % (11.6-15.6); WHITE BLOOD COUNT 6.5 K/mm3 (4.0-10.0)
[2018-07-09 08:05] LABS: ALBUMIN 2.8 g/dl (3.4-5.0); ALK PHOS 58 U/L (45-117); ANION GAP 10 MMOL/L (8-16); BILIRUBIN,TOTAL 0.4 mg/dL (0.2-1); BLOOD UREA NITROGEN 46 mg/dL (7-18); CALCIUM 8.2 mg/dL (8.5-10.1); CHLORIDE 109 mmol/L (98-107); CO2 23 mmol/L (21-32); GLUCOSE,RANDOM 91 mg/dL (74-106); PHOSPHOROUS 5.6 mg/dL (2.5-4.9); POTASSIUM 4.5 mmol/L (3.5-5.1); SGOT/AST 15 U/L (15-37); SGPT/ALT 20 U/L (13-61); SODIUM 142 mmol/L (136-145); TOT PROT 5.6 g/dl (6.4-8.2)
[2018-07-09] MEDS: CALCIUM ACETATE 667 MG CAPSULE (FP) PO SCH ×3 (08:21→18:16)
[2018-07-09] MEDS: amLODIPine BESYLATE 10 MG TABLET (FP) PO SCH (09:19)
[2018-07-09] MEDS: DOCUSATE SODIUM 100 MG CAPSULE (FP) PO SCH ×2 (09:19→21:10)
[2018-07-09] MEDS: HEPARIN NA (PORCINE) 5,000 UNITS/ML 1ML VIAL SQ SCH ×2 (09:20→21:10)
[2018-07-09] MEDS: RANITIDINE HCL 150 MG TABLET (FP) PO SCH ×2 (09:20→21:09)
--- NOTE | 2018-07-09 13:15 | PN ---
Progress Note (short form) - Note Progress Note: Comfortable no complains cr continue to improve. Vital Signs Temp 98.5 F 07/09/18 07:11 Pulse 60 07/09/18 07:11 Resp 20 07/09/18 07:11 BP 130/60 07/09/18 07:11 Pulse Ox 98 07/08/18 21:00 Intake & Output 07/08/18 07/09/18 07/09/18 23:59 11:59 23:59 Intake Total 760 Output Total 2910 Balance -2150 Intake: IV 710 1/2 Normal Saline 1,000 165 ml @ 75 mls/hr IV [facility] Rx#:[id number] 1/2 Normal Saline 1,000 545 ml @ 83 mls/hr IV [facility] Rx#:[id number] IVPB 50 Output: Urine 2910 Naik 1000 Void 1910 Other: Voiding Method Toilet Toilet Active Medications Amlodipine Besylate (Norvasc -) 10 mg PO DAILY [facility] Last Admin: 07/09/18 09:19 Dose: 10 mg Calcium Acetate (Phoslo -) 667 mg PO TIDCM [facility] Last Admin: 07/09/18 12:07 Dose: 667 mg Docusate Sodium (Colace -) 100 mg PO BID [facility] Last Admin: 07/09/18 09:19 Dose: Not Given Heparin Sodium (Porcine) (Heparin -) 5,000 unit SQ BID [facility] Last Admin: 07/09/18 09:20 Dose: Not Given Sodium Chloride (1/2 Normal Saline) 1,000 mls @ 75 mls/hr IV [facility] Last Admin: 07/09/18 06:07 Dose: 75 mls/hr Ondansetron HCl (Zofran Injection) 4 mg IVPUSH Q6H PRN PRN Reason: NAUSEA Last Admin: 07/05/18 22:12 Dose: 4 mg Ranitidine HCl (Zantac -) 150 mg PO BID [facility] Last Admin: 07/09/18 09:20 Dose: 150 mg CBC, BMP 07/09/18 06:00 07/09/18 06:00 Microbiology 07/04/18 21:00 Blood Culture - Preliminary Blood - Peripheral Venous NO GROWTH OBTAINED AFTER 96 HOURS, INCUBATION TO CONTINUE FOR 1 DAYS. 07/04/18 19:15 Blood Culture - Preliminary Blood - Peripheral Venous NO GROWTH OBTAINED AFTER 96 HOURS, INCUBATION TO CONTINUE FOR 1 DAYS. Physical exam Constitutional: Yes: No Distress, Calm and comfortable. Eyes: Yes: Conjunctiva Clear Neck: Yes: Supple. no jvd Respiratory: Yes: CTA Bilaterally Gastrointestinal: Yes: Normal Bowel Sounds, Soft, non tender. Edema: No Neurological: Yes: Alert Psychiatric: Yes: Alert Assessment/Plan better Continue Fluids off abx daily out of bed to chair Avoid NSAIDs Will follow. Problem List - Problems (1) UTI (urinary tract infection) Code(s): N39.0 - URINARY TRACT INFECTION, SITE NOT SPECIFIED (2) AUBREE (acute kidney injury) Code(s): N17.9 - ACUTE KIDNEY FAILURE, UNSPECIFIED (3) HTN (hypertension) Code(s): I10 - ESSENTIAL (PRIMARY) HYPERTENSION
--- NOTE | 2018-07-09 14:27 | PN ---
Progress Note, Physician Chief Complaint: Pt A&Ox3; she asks why her heart might still be slow despite being off metoprolol for several days. Walked yesterday without chest pain; she felt a little nauseous if she walked too quickly.. She gets up slowly and carefully to avoid dizziness. History of Present Illness: 53 yo female pmh COPD, hypertension, kidney stones (most recent 5 years ago, required admission to hospital and lithotripsy) and bowel obstruction over 20 years ago (portion of large intestine removed) presents to the ED with left flank pain and decreased appetite for 2 days. Patient states the pain started suddenly and became severe today prompting her to come to the ED. Pt admits to 1 episode of NBNB vomiting yesterday with constant nausea, no bowel movement for 2 days and chills but denies injury to affected area, CP, SOB or changes in urinary habits. - Current Medication List Current Medications: Active Medications Amlodipine Besylate (Norvasc -) 10 mg PO DAILY [facility] Last Admin: 07/09/18 09:19 Dose: 10 mg Calcium Acetate (Phoslo -) 667 mg PO TIDCM [facility] Last Admin: 07/09/18 12:07 Dose: 667 mg Docusate Sodium (Colace -) 100 mg PO BID [facility] Last Admin: 07/09/18 09:19 Dose: Not Given Heparin Sodium (Porcine) (Heparin -) 5,000 unit SQ BID [facility] Last Admin: 07/09/18 09:20 Dose: Not Given Sodium Chloride (1/2 Normal Saline) 1,000 mls @ 75 mls/hr IV ASDIR [facility] Last Admin: 07/09/18 06:07 Dose: 75 mls/hr Ondansetron HCl (Zofran Injection) 4 mg IVPUSH Q6H PRN PRN Reason: NAUSEA Last Admin: 07/05/18 22:12 Dose: 4 mg Ranitidine HCl (Zantac -) 150 mg PO BID [facility] Last Admin: 07/09/18 09:20 Dose: 150 mg - Objective Vital Signs: Vital Signs Temperature 98.5 F 07/09/18 07:11 Pulse Rate 60 07/09/18 07:11 Respiratory Rate 20 07/09/18 07:11 Blood Pressure 130/60 07/09/18 07:11 O2 Sat by Pulse Oximetry (%) 98 07/08/18 21:00 Constitutional: Yes: Anxious Eyes: Yes: WNL HENT: Yes: WNL Neck: Yes: WNL Cardiovascular: Yes: Bradycardia Respiratory: Yes: WNL Gastrointestinal: Yes: Soft ...Rectal Exam: Yes: Deferred Genitourinary: No: Anuria Breast(s): Yes: WNL Musculoskeletal: Yes: WNL Extremities: Yes: WNL Edema: No Peripheral Pulses WNL: Yes Integumentary: Yes: WNL Neurological: Yes: WNL Labs: CBC, BMP 07/09/18 06:00 07/09/18 06:00 INR, PTT INR 0.90 (0.83-1.09) 07/05/18 05:30 Problem List - Problems (1) Bradycardia Assessment/Plan: improved resting HR since being off metorpolol. TSH WNL. ECHO: normal LVEF, normal chamber sizes. For EKG in am. Code(s): R00.1 - BRADYCARDIA, UNSPECIFIED (2) COPD (chronic obstructive pulmonary disease) Code(s): J44.9 - CHRONIC OBSTRUCTIVE PULMONARY DISEASE, UNSPECIFIED (3) HTN (hypertension) Assessment/Plan: on amlodipine Code(s): I10 - ESSENTIAL (PRIMARY) HYPERTENSION (4) UTI (urinary tract infection) Code(s): N39.0 - URINARY TRACT INFECTION, SITE NOT SPECIFIED
--- NOTE | 2018-07-09 19:07 | PN ---
Progress Note, Physician History of Present Illness: Pt seen and examined at bedside. Her appetite is improving. She denies shortness of breath. - Current Medication List Current Medications: Active Medications Amlodipine Besylate (Norvasc -) 10 mg PO DAILY [facility] Last Admin: 07/09/18 09:19 Dose: 10 mg Calcium Acetate (Phoslo -) 667 mg PO TIDCM [facility] Last Admin: 07/09/18 18:16 Dose: 667 mg Docusate Sodium (Colace -) 100 mg PO BID [facility] Last Admin: 07/09/18 09:19 Dose: Not Given Heparin Sodium (Porcine) (Heparin -) 5,000 unit SQ BID [facility] Last Admin: 07/09/18 09:20 Dose: Not Given Sodium Chloride (1/2 Normal Saline) 1,000 mls @ 75 mls/hr IV ASDIR [facility] Last Admin: 07/09/18 06:07 Dose: 75 mls/hr Ondansetron HCl (Zofran Injection) 4 mg IVPUSH Q6H PRN PRN Reason: NAUSEA Last Admin: 07/05/18 22:12 Dose: 4 mg Ranitidine HCl (Zantac -) 150 mg PO BID [facility] Last Admin: 07/09/18 09:20 Dose: 150 mg - Objective Vital Signs: Vital Signs Temperature 98.2 F 07/09/18 17:29 Pulse Rate 69 07/09/18 17:29 Respiratory Rate 18 07/09/18 17:29 Blood Pressure 147/71 07/09/18 17:29 O2 Sat by Pulse Oximetry (%) 98 07/09/18 10:00 Constitutional: Yes: Calm Eyes: Yes: Conjunctiva Clear HENT: Yes: Atraumatic Cardiovascular: Yes: S1, S2 Respiratory: Yes: CTA Bilaterally Gastrointestinal: Yes: Soft Genitourinary: Yes: WNL Musculoskeletal: Yes: WNL Extremities: Yes: WNL Edema: No Neurological: Yes: Oriented Psychiatric: Yes: Oriented Labs: CBC, BMP 07/09/18 06:00 07/09/18 06:00 INR, PTT INR 0.90 (0.83-1.09) 07/05/18 05:30 Problem List - Problems (1) HTN (hypertension) Code(s): I10 - ESSENTIAL (PRIMARY) HYPERTENSION (2) COPD (chronic obstructive pulmonary disease) Code(s): J44.9 - CHRONIC OBSTRUCTIVE PULMONARY DISEASE, UNSPECIFIED (3) AUBREE (acute kidney injury) Code(s): N17.9 - ACUTE KIDNEY FAILURE, UNSPECIFIED Assessment/Plan Current Medications Generic Name Dose Route Start Last Admin Trade Name Freq PRN Reason Stop Dose Admin Amlodipine Besylate 10 mg 07/04/18 10:00 07/09/18 09:19 Norvasc - PO 10 mg DAILY [facility] Administration Calcium Acetate 667 mg 07/04/18 17:30 07/09/18 18:16 Phoslo - PO 667 mg TIDCM [facility] Administration Docusate Sodium 100 mg 07/05/18 14:28 07/09/18 09:19 Colace - PO Not Given BID [facility] Heparin Sodium (Porcine) 5,000 unit 07/04/18 10:00 07/09/18 09:20 Heparin - SQ Not Given BID [facility] Sodium Chloride 1,000 mls @ 75 mls/hr 07/08/18 12:20 07/09/18 06:07 1/2 Normal Saline IV 75 mls/hr ASDIR [facility] Administration Ondansetron HCl 4 mg 07/05/18 21:56 07/05/18 22:12 Zofran Injection IVPUSH 4 mg Q6H PRN Administration NAUSEA Ranitidine HCl 150 mg 07/05/18 16:30 07/09/18 09:20 Zantac - PO 150 mg BID [facility] Administration Impression 1. AUBREE likely from ATN 2. hyperkalemia 3. HTN 4. nephrolithiasis 5. UTI 6. constipation 7. bradycardia Plan - renal function improving - can hold fluids overnight - repeat labs in am - heme input appreciated - discussed with medical attending Dr Leon
[2018-07-10] MEDS: CALCIUM ACETATE 667 MG CAPSULE (FP) PO SCH ×3 (08:20→17:15)
[2018-07-10 08:30] LABS: ALBUMIN 3.2 g/dl (3.4-5.0); ALK PHOS 62 U/L (45-117); ANION GAP 12 MMOL/L (8-16); BILIRUBIN,TOTAL 0.5 mg/dL (0.2-1); BLOOD UREA NITROGEN 48 mg/dL (7-18); CALCIUM 8.7 mg/dL (8.5-10.1); CHLORIDE 107 mmol/L (98-107); CO2 24 mmol/L (21-32); CREATININE 4.5 mg/dL (0.55-1.3); GLUCOSE,RANDOM 92 mg/dL (74-106); PHOSPHOROUS 5.6 mg/dL (2.5-4.9); POTASSIUM 4.6 mmol/L (3.5-5.1); SGOT/AST 20 U/L (15-37); SGPT/ALT 26 U/L (13-61); SODIUM 143 mmol/L (136-145); TOT PROT 6.1 g/dl (6.4-8.2)
[2018-07-10] MEDS: HEPARIN NA (PORCINE) 5,000 UNITS/ML 1ML VIAL SQ SCH ×2 (09:54→22:38)
[2018-07-10] MEDS: DOCUSATE SODIUM 100 MG CAPSULE (FP) PO SCH ×2 (09:54→22:37)
[2018-07-10] MEDS: amLODIPine BESYLATE 10 MG TABLET (FP) PO SCH (09:55)
[2018-07-10] MEDS: RANITIDINE HCL 150 MG TABLET (FP) PO SCH ×2 (09:55→22:37)
--- NOTE | 2018-07-10 13:04 | PN ---
Progress Note (short form) - Note Progress Note: comfortable mild headache cr continue to improve Vital Signs Temp 98.2 F 07/10/18 06:00 Pulse 60 07/10/18 06:00 Resp 16 07/10/18 06:00 BP 132/70 07/10/18 06:00 Pulse Ox 98 07/09/18 20:38 Intake & Output 07/09/18 07/10/18 07/10/18 23:59 11:59 23:59 Intake Total 545 Output Total 3960 Balance -3415 Intake: IV 315 1/2 Normal Saline 1,000 315 ml @ 75 mls/hr IV ASDIR [facility] Rx#:[id number] IVPB 50 Oral 180 Output: Urine 3960 Void 3960 Other: Voiding Method Toilet Toilet # Unmeasured Voids Naik 3 Bowel Movement No No # Bowel Movements 1 Active Medications Amlodipine Besylate (Norvasc -) 10 mg PO DAILY [facility] Last Admin: 07/10/18 09:55 Dose: 10 mg Calcium Acetate (Phoslo -) 667 mg PO TIDCM [facility] Last Admin: 07/10/18 08:20 Dose: 667 mg Docusate Sodium (Colace -) 100 mg PO BID [facility] Last Admin: 07/10/18 09:54 Dose: Not Given Heparin Sodium (Porcine) (Heparin -) 5,000 unit SQ BID [facility] Last Admin: 07/10/18 09:54 Dose: Not Given Sodium Chloride (1/2 Normal Saline) 1,000 mls @ 75 mls/hr IV ASDIR [facility] Last Admin: 07/09/18 19:35 Dose: Not Given Ondansetron HCl (Zofran Injection) 4 mg IVPUSH Q6H PRN PRN Reason: NAUSEA Last Admin: 07/05/18 22:12 Dose: 4 mg Ranitidine HCl (Zantac -) 150 mg PO BID [facility] Last Admin: 07/10/18 09:55 Dose: 150 mg CBC, BMP 07/09/18 06:00 07/10/18 06:15 Microbiology 07/04/18 21:00 Blood Culture - Final Blood - Peripheral Venous NO GROWTH AFTER 5 DAYS INCUBATION 07/04/18 19:15 Blood Culture - Final Blood - Peripheral Venous NO GROWTH AFTER 5 DAYS INCUBATION Physical exam Constitutional: Yes: No Distress,comfortable. Eyes: Yes: Conjunctiva Clear Neck: Yes: Supple. no jvd Respiratory: Yes: CTA Bilaterally Gastrointestinal: Yes: Normal Bowel Sounds, Soft, non tender. Edema: No Neurological: Yes: Alert. n/f Psychiatric: Yes: Alert Assessment/Plan better Continue Fluids off abx daily out of bed to chair Avoid NSAIDs tylenol prn d/c planing - peter tomorrow if stable / better Will follow. Problem List - Problems (1) UTI (urinary tract infection) Code(s): N39.0 - URINARY TRACT INFECTION, SITE NOT SPECIFIED (2) AUBREE (acute kidney injury) Code(s): N17.9 - ACUTE KIDNEY FAILURE, UNSPECIFIED (3) HTN (hypertension) Code(s): I10 - ESSENTIAL (PRIMARY) HYPERTENSION
--- NOTE | 2018-07-10 13:53 | EKG ---
Test Reason : Blood Pressure : / mmHG Vent. Rate : 055 BPM Atrial Rate : 055 BPM P-R Int : 136 ms QRS Dur : 080 ms QT Int : 412 ms P-R-T Axes : 042 044 044 degrees QTc Int : 394 ms SINUS BRADYCARDIA OTHERWISE NORMAL ECG WHEN COMPARED WITH ECG OF 04-JUL-2018 01:12, NO SIGNIFICANT CHANGE WAS FOUND Confirmed by MD Luis, Alfie ([id number]) on 07/10/2018 1:52:53 PM Referred By: Brianne NOBLE Confirmed By:Alfie Smith MD
[2018-07-10] MEDS ORDERED: ACETAMINOPHEN 500 MG TABLET (FP) PO PRN (14:35)
--- NOTE | 2018-07-10 17:07 | PN ---
Progress Note, Physician History of Present Illness: Pt seen and examined at bedside. She is awake and alert. She denies shortness of breath. - Current Medication List Current Medications: Active Medications Acetaminophen (Tylenol -) 500 mg PO Q6H PRN PRN Reason: HEADACHE Amlodipine Besylate (Norvasc -) 10 mg PO DAILY [facility] Last Admin: 07/10/18 09:55 Dose: 10 mg Calcium Acetate (Phoslo -) 667 mg PO TIDCM [facility] Last Admin: 07/10/18 13:29 Dose: 667 mg Docusate Sodium (Colace -) 100 mg PO BID [facility] Last Admin: 07/10/18 09:54 Dose: Not Given Heparin Sodium (Porcine) (Heparin -) 5,000 unit SQ BID [facility] Last Admin: 07/10/18 09:54 Dose: Not Given Sodium Chloride (1/2 Normal Saline) 1,000 mls @ 75 mls/hr IV ASDIR [facility] Last Admin: 07/09/18 19:35 Dose: Not Given Ondansetron HCl (Zofran Injection) 4 mg IVPUSH Q6H PRN PRN Reason: NAUSEA Last Admin: 07/05/18 22:12 Dose: 4 mg Ranitidine HCl (Zantac -) 150 mg PO BID [facility] Last Admin: 07/10/18 09:55 Dose: 150 mg - Objective Vital Signs: Vital Signs Temperature 97.9 F 07/10/18 14:14 Pulse Rate 69 07/10/18 14:14 Respiratory Rate 18 07/10/18 14:14 Blood Pressure 138/60 07/10/18 14:14 O2 Sat by Pulse Oximetry (%) 98 07/10/18 09:00 Constitutional: Yes: Calm Eyes: Yes: Conjunctiva Clear HENT: Yes: Atraumatic Cardiovascular: Yes: S1, S2 Respiratory: Yes: CTA Bilaterally Gastrointestinal: Yes: Soft Genitourinary: Yes: WNL Musculoskeletal: Yes: WNL Edema: No Neurological: Yes: Oriented Psychiatric: Yes: Oriented Labs: CBC, BMP 07/09/18 06:00 07/10/18 06:15 INR, PTT INR 0.90 (0.83-1.09) 07/05/18 05:30 Problem List - Problems (1) HTN (hypertension) Code(s): I10 - ESSENTIAL (PRIMARY) HYPERTENSION (2) COPD (chronic obstructive pulmonary disease) Code(s): J44.9 - CHRONIC OBSTRUCTIVE PULMONARY DISEASE, UNSPECIFIED (3) AUBREE (acute kidney injury) Code(s): N17.9 - ACUTE KIDNEY FAILURE, UNSPECIFIED Assessment/Plan Current Medications Generic Name Dose Route Start Last Admin Trade Name Freq PRN Reason Stop Dose Admin Acetaminophen 500 mg 07/10/18 14:35 Tylenol - PO Q6H PRN HEADACHE Amlodipine Besylate 10 mg 07/04/18 10:00 07/10/18 09:55 Norvasc - PO 10 mg DAILY [facility] Administration Calcium Acetate 667 mg 07/04/18 17:30 07/10/18 13:29 Phoslo - PO 667 mg TIDCM [facility] Administration Docusate Sodium 100 mg 07/05/18 14:28 07/10/18 09:54 Colace - PO Not Given BID [facility] Heparin Sodium (Porcine) 5,000 unit 07/04/18 10:00 07/10/18 09:54 Heparin - SQ Not Given BID [facility] Sodium Chloride 1,000 mls @ 75 mls/hr 07/09/18 19:15 07/09/18 19:35 1/2 Normal Saline IV Not Given ASDIR [facility] Ondansetron HCl 4 mg 07/05/18 21:56 07/05/18 22:12 Zofran Injection IVPUSH 4 mg Q6H PRN Administration NAUSEA Ranitidine HCl 150 mg 07/05/18 16:30 07/10/18 09:55 Zantac - PO 150 mg BID [facility] Administration Impression 1. AUBREE likely from [facility] 2. hyperkalemia 3. HTN 4. nephrolithiasis 5. UTI 6. constipation 7. bradycardia Plan - creatinine is improving - repeat labs in am - possible discharge tomorrow depending on rn charge - renal workup negative so far - AUBREE from [facility] Dr Leon
[2018-07-11 06:38] LABS: ANION GAP 11 MMOL/L (8-16); BLOOD UREA NITROGEN 44 mg/dL (7-18); CALCIUM 8.6 mg/dL (8.5-10.1); CHLORIDE 107 mmol/L (98-107); CO2 25 mmol/L (21-32); CREATININE 3.7 mg/dL (0.55-1.3); GLUCOSE,RANDOM 88 mg/dL (74-106); POTASSIUM 4.5 mmol/L (3.5-5.1); SODIUM 143 mmol/L (136-145)
[2018-07-11] MEDS: SODIUM CHLORIDE 0.45% 1,000 ML IV SCH ×2 (07:01→12:42)
[2018-07-11] MEDS ORDERED: PT OWN MED DRAWER 7, Y5N ONE (09:56)
[2018-07-11] MEDS: DOCUSATE SODIUM 100 MG CAPSULE (FP) PO SCH (10:00)
[2018-07-11] MEDS: RANITIDINE HCL 150 MG TABLET (FP) PO SCH (10:00)
[2018-07-11] MEDS: CALCIUM ACETATE 667 MG CAPSULE (FP) PO SCH ×2 (10:00→12:42)
[2018-07-11] MEDS: amLODIPine BESYLATE 10 MG TABLET (FP) PO SCH (10:00)
--- NOTE | 2018-07-11 10:54 | PN ---
Progress Note (short form) - Note Progress Note: pt seen/ examined. comfortable no new issues pt reports Dr. Camilo wants to do Kidney biopsy today cr better Vital Signs Temp 98.5 F 07/11/18 06:57 Pulse 62 07/11/18 06:57 Resp 18 07/11/18 06:57 BP 125/67 07/11/18 06:57 Pulse Ox 98 07/10/18 21:00 Intake & Output 07/10/18 07/10/18 07/11/18 11:59 23:59 11:59 Intake Total 75 375 Output Total 880 1200 Balance -805 -825 Intake: IV 75 75 1/2 Normal Saline 1,000 75 75 ml @ 75 mls/hr IV ASDIR [facility] Rx#:[id number] Oral 300 Output: Urine 880 1200 Void 880 1200 Other: Voiding Method Toilet Toilet Toilet # Unmeasured Voids Naik 3 Bowel Movement No Yes: 1 Active Medications Acetaminophen (Tylenol -) 500 mg PO Q6H PRN PRN Reason: HEADACHE Amlodipine Besylate (Norvasc -) 10 mg PO DAILY [facility] Last Admin: 07/11/18 10:00 Dose: 10 mg Calcium Acetate (Phoslo -) 667 mg PO TIDCM [facility] Last Admin: 07/11/18 10:00 Dose: 667 mg Docusate Sodium (Colace -) 100 mg PO BID [facility] Last Admin: 07/11/18 10:00 Dose: 100 mg Sodium Chloride (1/2 Normal Saline) 1,000 mls @ 75 mls/hr IV ASDIR [facility] Last Admin: 07/09/18 19:35 Dose: Not Given Ondansetron HCl (Zofran Injection) 4 mg IVPUSH Q6H PRN PRN Reason: NAUSEA Last Admin: 07/05/18 22:12 Dose: 4 mg Ranitidine HCl (Zantac -) 150 mg PO BID [facility] Last Admin: 07/11/18 10:00 Dose: 150 mg CBC, BMP 07/09/18 06:00 07/11/18 05:30 Physical exam Constitutional: Yes: No Distress,comfortable. Eyes: Yes: Conjunctiva Clear Neck: Yes: Supple. no jvd Respiratory: Yes: CTA Bilaterally Gastrointestinal: Yes: Normal Bowel Sounds, Soft, non tender. Edema: No Neurological: Yes: Alert. Psychiatric: Yes: Alert/ awake Assessment/Plan better Continue Fluids off abx daily out of bed to chair Avoid NSAIDs tylenol prn Will discuss regarding Renal Biopsy. Will follow. Discussed with Nursing staff now. Problem List - Problems (1) UTI (urinary tract infection) Code(s): N39.0 - URINARY TRACT INFECTION, SITE NOT SPECIFIED (2) AUBREE (acute kidney injury) Code(s): N17.9 - ACUTE KIDNEY FAILURE, UNSPECIFIED (3) HTN (hypertension) Code(s): I10 - ESSENTIAL (PRIMARY) HYPERTENSION
[2018-07-11 14:56] VITALS: BP 120/53; PULSE 66; TEMP 98.3
--- NOTE | 2018-07-11 16:22 | PN ---
Progress Note, Physician History of Present Illness: Pt seen and examined at bedside. SHe feels well and has no complaints. - Objective Vital Signs: Vital Signs Temperature 98.3 F 07/11/18 14:55 Pulse Rate 66 07/11/18 14:55 Respiratory Rate 18 07/11/18 14:55 Blood Pressure 120/53 L 07/11/18 14:55 O2 Sat by Pulse Oximetry (%) 100 07/11/18 09:00 Constitutional: Yes: Calm Eyes: Yes: Conjunctiva Clear HENT: Yes: Atraumatic Neck: Yes: Supple Cardiovascular: Yes: S1, S2 Respiratory: Yes: CTA Bilaterally Gastrointestinal: Yes: Soft Genitourinary: Yes: WNL Musculoskeletal: Yes: WNL Edema: No Neurological: Yes: Oriented Psychiatric: Yes: Oriented Labs: CBC, BMP 07/09/18 06:00 07/11/18 05:30 INR, PTT INR 0.90 (0.83-1.09) 07/05/18 05:30 Problem List - Problems (1) HTN (hypertension) Code(s): I10 - ESSENTIAL (PRIMARY) HYPERTENSION (2) COPD (chronic obstructive pulmonary disease) Code(s): J44.9 - CHRONIC OBSTRUCTIVE PULMONARY DISEASE, UNSPECIFIED (3) AUBREE (acute kidney injury) Code(s): N17.9 - ACUTE KIDNEY FAILURE, UNSPECIFIED Assessment/Plan Impression 1. AUBREE likely from [facility] 2. hyperkalemia 3. HTN 4. nephrolithiasis 5. UTI 6. constipation 7. bradycardia Plan - renal function is improving - pt can go home today - she will come to the office for bloodwork on Wednesday - possible kidney biopsy as outpt - AUBREE from [facility] Dr Leon
--- NOTE | 2018-07-11 21:39 | DS ---
Physical Examination Vital Signs: Vital Signs Temperature 98.3 F 07/11/18 14:55 Pulse Rate 66 07/11/18 14:55 Respiratory Rate 18 07/11/18 14:55 Blood Pressure 120/53 L 07/11/18 14:55 O2 Sat by Pulse Oximetry (%) 100 07/11/18 09:00 Findings/Remarks: see progress note Labs: CBC, BMP 07/09/18 06:00 07/11/18 05:30 Discharge Summary Reason For Visit: ACUTE KIDNEY INJURY Hospital Course: admitted for arf treated with fluids also treated with abx for uti much better cleared by renal for d/c pt to follow with her pmd/ renal as out pt Renal biopsy to be considered as out pt as per renal Avoid nsaids meds reconcilled prescribed as needed Condition: Stable - Instructions Referrals: Cali Vasquez MD [Primary Care Provider] - Disposition: HOME - Home Medications Comprehensive Discharge Medication List: Ambulatory Orders Amlodipine Besylate 10 mg PO DAILY 07/03/18 Acetaminophen [Tylenol .Extra-Strength -] 500 mg PO Q6H PRN tablet 07/11/18 Calcium Acetate [Phoslo -] 667 mg PO TIDCM #90 capsule 07/11/18 Docusate Sodium [Colace -] 100 mg PO BID #60 capsule 07/11/18 Ranitidine [Zantac -] 150 mg PO BID 30 Days #60 tablet 07/11/18
== END 2018-07-11 16:02 | disposition home or self-care (01) | DRG 683 ==
LOC: JER 18:31 → JERBED 07-04 00:45 → J8W 07-04 16:02 → J4W 07-04 20:34 → J8W 07-07 13:12
PROVIDERS: ADMIT Internal Medicine; ATTEND Internal Medicine
DX: N17.0 Acute kidney failure with tubular necrosis (principal); N39.0 Urinary tract infection, site not specified; I10 Essential (primary) hypertension; J44.9 Chronic obstructive pulmonary disease, unspecified; R00.1 Bradycardia, unspecified; K80.80 Other cholelithiasis without obstruction; E87.5 Hyperkalemia; N20.0 Calculus of kidney; K59.00 Constipation, unspecified; Z90.49 Acquired absence of other specified parts of digestive tract
CPT/HCPCS: 36415; 74019-TC-FY; 74176; 76775-TC; 78708-TC; 80048; 80053; 81003; 81015; 82164; 82436; 82550; 82570; 83516; 83520; 83690; 83735; 83883; 84100; 84133; 84155; 84156; 84165; 84300; 84439; 84443; 84484; 84703; 85025; 85610; 85730; 86038; 86160; 86225; 86235; 86256; 86704; 86706; 86708; 87040; 87086; 87340; 87522; 93005; 93010; 93306-TC; 99285-25; A9562; J0131; J1644; J7030

== ENCOUNTER 2019-01-18 01:22 | Emergency (ER) | payer OTHER ==
--- NOTE | 2019-01-18 01:42 | PDOC ---
History of Present Illness - General Stated Complaint: SOB Time Seen by Provider: 01/18/19 01:33 History Source: Patient Exam Limitations: No Limitations - History of Present Illness Initial Comments: 01/18/19 01:36 53F with PMH of asthma, HTN, bowel obstruction, kidney stones who presents for acute onset SOB with b/l arm tingling. The patient states that she was at work and began feeling short of breath with b/l arm tingling and headache. The patient denies CP, fever, chills, nausea, vomiting, diaphoresis. She states that she felt like "her asthma was acting up". Past History - Past Medical History Allergies/Adverse Reactions: Allergies Allergy/AdvReac Type Severity Reaction Status Date / Time No Known Allergies Allergy Verified 01/18/19 01:48 Home Medications: Ambulatory Orders Amlodipine Besylate 10 mg PO DAILY 07/03/18 Albuterol Sulfate [Proair Hfa] 8.5 gm IH PRN PRN 01/18/19 Montelukast Na [Singulair -] 10 mg PO HS 01/18/19 COPD: Yes HTN: Yes Kidney Stones: Yes - Immunization History Immunization Up to Date: Yes - Suicide/Smoking/Psychosocial Hx Smoking History: Never smoked Hx Alcohol Use: No Drug/Substance Use Hx: No Review of Systems - Review of Systems Able to Perform ROS?: Yes Comments:: 01/18/19 04:30 GENERAL/CONSTITUTIONAL: No fever or chills. No weakness. HEAD, EYES, EARS, NOSE AND THROAT: No change in vision. No ear pain or discharge. No sore throat. CARDIOVASCULAR: No chest pain, palpitations, or lightheadedness. RESPIRATORY: + for SOB. No cough, wheezing, or hemoptysis. GASTROINTESTINAL: No nausea, vomiting, diarrhea, constipation, or abdominal pain. GENITOURINARY: No dysuria, frequency, hematuria, or change in urination. MUSCULOSKELETAL: No joint or muscle swelling or pain. No neck or back pain. SKIN: No rash or lesions. NEUROLOGIC: + for b/l arm tingling. No headache, numbness, focal weakness, loss of consciousness, or change in strength/sensation. Is the patient limited Burmese proficient: No *Physical Exam - Physical Exam Comments: 01/18/19 04:30 GENERAL: Well developed, well nourished. Awake and alert. No acute distress. HEENT: Normocephalic, atraumatic. Hearing grossly normal. Moist mucous membranes. PERRLA, EOMI. No conjunctival pallor. Sclera are non-icteric. NECK: Supple. Full ROM. No JVD. CARDIOVASCULAR: Regular rate and rhythm. No murmurs, rubs, or gallops. PULMONARY: No evidence of respiratory distress. Lungs clear to auscultation bilaterally. No wheezing, rales or rhonchi. ABDOMINAL: Soft. Non-tender. Non-distended. No rebound or guarding. MUSCULOSKELETAL: Normal range of motion at all joints. No bony deformities or tenderness. EXTREMITIES: No cyanosis. No clubbing. No edema. No calf tenderness or swelling. SKIN: Warm and dry. Normal capillary refill. No rashes. No jaundice. NEUROLOGICAL: Alert, awake, appropriate. Cranial nerves 2-12 intact. No deficits to light touch and temperature in face, upper extremities and lower extremities. 5/5 strength in deltoids, biceps, triceps, quadriceps, hamstrings, and gastrocnemius. Normoreflexic in the upper and lower extremities. Normal speech. Gait is normal without ataxia. PSYCHIATRIC: Cooperative. Good eye contact. Appropriate mood and affect. ED Treatment Course - LABORATORY CBC & Chemistry Diagram: 01/18/19 02:05 01/18/19 02:05 - RADIOLOGY Radiology Studies Ordered: Category Date Time Status HEAD CT WITHOUT CONTRAST [CT] Stat CT Scan 01/18/19 01:33 Ordered Medical Decision Making - Medical Decision Making 01/18/19 04:31 53F with a PMH of asthma who presents with multiple symptoms. PE unremarkable. CXR shows questionable atelectasis at R lung base. TSH and labs negative. CTH pending, negative on preliminary read. 01/18/19 04:47 CTH negative. Will give NS. Orthostats negative. 01/18/19 05:48 Pt feels much better. Will d/c with PCP f/u. Pt has appt with PCP today. *DC/Admit/Observation/Transfer Diagnosis at time of Disposition: Light-headed feeling - Discharge Dispostion Disposition: HOME Condition at time of disposition: Stable Decision to Admit order: No - Referrals Referrals: Cali Vasquez MD [Primary Care Provider] - - Patient Instructions Printed Discharge Instructions: DI for Asthma -- Adult Additional Instructions: Your ER visit is not complete until your follow up with your primary care physician. Please follow up with your primary care physician in 1-2 days. Please return to the ER if you have any signs or symptoms of chest pain, shortness of breath, uncontrollable fever, chills, nausea, vomiting, numbness, tingling, or weakness in any part of your body, changes in vision, or slurred speech. Please return to the ER if symptoms persist, worsen, or new symptoms arise. - Post Discharge Activity Forms/Work/School Notes: Back to Work
[2019-01-18 01:48] VITALS: TEMP 98.1; BMI 21.2
[2019-01-18 02:21] LABS: BASO % 1.1 % (0-2.0); HEMATOCRIT 38.2 % (32.4-45.2); HEMOGLOBIN 12.8 GM/dL (10.7-15.3); LYMPH % 25.6 % (8-40); MCHC 33.4 g/dl (32.0-36.0); MEAN CELL VOLUME 86.8 fl (80-96); MEAN PLT VOLUME 7.3 fl (7.5-11.1); NEUT % 63.3 % (42.8-82.8); PLATELET COUNT 329 K/MM3 (134-434); RDW 12.6 % (11.6-15.6); WHITE BLOOD COUNT 8.7 K/mm3 (4.0-10.0)
[2019-01-18] MEDS ORDERED: ALBUTEROL SO4 2.5/IPRATROPIUM 0.5 INH SOL 3 ML VIAL.NEB. NEB ONE ×2 (02:29→02:34)
[2019-01-18 02:51] LABS: INR 0.97 (0.83-1.09); PROTHROMBIN TIME (PATIENT) 11.5 SEC (9.7-13.0)
[2019-01-18 02:52] LABS: ALBUMIN 3.6 g/dl (3.4-5.0); ALK PHOS 85 U/L (45-117); ANION GAP 8 MMOL/L (8-16); BILIRUBIN,TOTAL 0.6 mg/dL (0.2-1); BLOOD UREA NITROGEN 14 mg/dL (7-18); CALCIUM 9.1 mg/dL (8.5-10.1); CHLORIDE 101 mmol/L (98-107); CO2 28 mmol/L (21-32); CREATININE 1.1 mg/dL (0.55-1.3); GLUCOSE,RANDOM 105 mg/dL (74-106); MAGNESIUM 2.2 mg/dL (1.8-2.4); POTASSIUM 3.7 mmol/L (3.5-5.1); SGOT/AST 19 U/L (15-37); SGPT/ALT 26 U/L (13-61); SODIUM 137 mmol/L (136-145); TOT PROT 7.4 g/dl (6.4-8.2)
[2019-01-18] MEDS ORDERED: SODIUM CHLORIDE 0.9% 1000 ML INFUS.BAG IV ONE (04:52)
--- NOTE | 2019-01-18 05:21 | PDOC ---
Documentation entered by [employer]ble Steve SCRIBE, acting as scribe for Mariam Silva DO. Mariam Silva DO: This documentation has been prepared by the Power ledezma Matthew, SCRIBE, under my direction and personally reviewed by me in its entirety. I confirm that the documentation accurately reflects all work, treatment, procedures, and medical decision making performed by me. Attending Attestation - Resident Resident Name: Jose Parikh - ED Attending Attestation I have performed the following: I have examined & evaluated the patient, The case was reviewed & discussed with the resident, I agree w/resident's findings & plan - HPI HPI: 01/18/19 01:50 Patient is a 53 year old female with a significant past medical history of HTN, bowel obstruction, kidney stones who presents to the ED with complaints of shortness of breath that began just prior to ED arrival. Patient reports being at work when she began to experience a sudden episode of shortness of breath with associated symptoms of chest pain, chest palpitations, bilateral hand numbness with tingling, prompting her to come into the ED for further evaluation. She reports experience another episode of bilateral hand tingling while in the ED. Denies chest pain, sob. Denies nausea,vomiting. Denies fevers, chills. Denies contact with sick individuals, out of state travelling. Denies dysuria, hematuria. Denies constipation, diarrhea. Denies any other symptoms. Allergies: NKDA. Social history: No smoking. No alcohol. No illicit drugs. Surgical history: None PMD: Dr. Vasquez - Physicial Exam PE: 01/18/19 01:50 Agree with residents Physical Exam. - Medical Decision Making 01/18/19 05:19 53-year-old female with an episode of lightheadedness and hand tingling while at work Labs and EKG are within normal limits Chest x-ray shows some streaky probable atelectasis in the right middle lobe region CT scan of the brain shows no acute abnormalities Patient is non-orthostatic On reevaluation at 5:20 AM she states she is still a little weak but feels better A d-dimer was added on which is within normal limits Patient is chest pain-free and otherwise asymptomatic at this time She was offered observation which she has refused stating she prefers to go home 1 L of IV fluid normal saline bolus given due to decreased by mouth intake over the weekend Plan to discharge home with recommended outpatient primary care follow-up
[2019-01-18 06:00] VITALS: BP 128/57; PULSE 87
--- NOTE | 2019-01-18 08:28 | EKG ---
Test Reason : Blood Pressure : / mmHG Vent. Rate : 071 BPM Atrial Rate : 071 BPM P-R Int : 152 ms QRS Dur : 082 ms QT Int : 392 ms P-R-T Axes : 073 067 062 degrees QTc Int : 425 ms NORMAL SINUS RHYTHM NORMAL ECG WHEN COMPARED WITH ECG OF 10-JUL-2018 11:00, NO SIGNIFICANT CHANGE WAS FOUND Confirmed by TAMIKA MORENO MD ([id number]) on 01/18/2019 8:28:27 AM Referred By: Venita ZUNIGA Confirmed By:TAMIKA MORENO MD
== END 2019-01-18 06:08 | disposition home or self-care (01) ==
LOC: JER 01:22
PROC: 3E0F7GC Introduction of Other Therapeutic Substance into Respiratory Tract, Via Natural or Artificial Opening (ICD-10-PCS; principal; 2019-01-18)
DX: R42 Dizziness and giddiness (principal); J45.909 Unspecified asthma, uncomplicated; I10 Essential (primary) hypertension; Z87.442 Personal history of urinary calculi
CPT/HCPCS: 36415; 70450-TC; 71046-TC-FY; 80053; 82550; 83735; 84443; 84484; 85025; 85379; 85610; 93005; 93010; 99282-25; J7030

== ENCOUNTER 2021-09-09 09:58 | Emergency (ER) | payer OTHER ==
[2021-09-09 10:21] VITALS: TEMP 97.7; BMI 23.0
[2021-09-09] MEDS ORDERED: SODIUM CHLORIDE 1,000 ML IV SCH (14:00)
[2021-09-09] MEDS ORDERED: MECLIZINE HCL 25 MG TABLET (FP) PO ONE (14:06)
[2021-09-09] MEDS ORDERED: SODIUM CHLORIDE 500 ML IV STA (14:16)
[2021-09-09] MEDS ORDERED: ONDANSETRON 4 MG/2 ML VIAL IVPUSH ONE (14:19)
[2021-09-09] MEDS ORDERED: MECLIZINE HCL 25 MG TABLET (FP) ONE (14:24)
[2021-09-09] MEDS ORDERED: ONDANSETRON 4 MG/2 ML VIAL ONE (14:24)
[2021-09-09 14:49] LABS: BASO % 0.9 % (0-2.0); EOS % 0.1 % (0-4.5); HEMATOCRIT 42.6 % (32.4-45.2); HEMOGLOBIN 14.6 GM/dL (10.7-15.3); LYMPH % 17.4 % (8-40); MCH 29.4 pg (25.7-33.7); MCHC 34.2 g/dl (32.0-36.0); MEAN CELL VOLUME 85.8 fl (80-96); MEAN PLT VOLUME 7.2 fl (7.5-11.1); MONO % 3.1 % (3.8-10.2); NEUT % 78.5 % (42.8-82.8); PLATELET COUNT 238 10^3/uL (134-434); RBC 4.97 M/mm3 (3.60-5.2); RDW 13.7 % (11.6-15.6); WHITE BLOOD COUNT 11.3 K/mm3 (4.0-10.0)
[2021-09-09 15:02] LABS: INR 0.88 (0.83-1.09); PROTHROMBIN TIME (PATIENT) 10.3 SEC (9.7-13.0)
[2021-09-09 15:04] LABS: ACTIVATED PTT 31.4 SECONDS (25.2-36.5)
[2021-09-09 15:08] LABS: CHLORIDE 105 mmol/L (98-107); SODIUM 140 mmol/L (136-145)
[2021-09-09 15:11] LABS: ALBUMIN 4.3 g/dl (3.4-5.0); ANION GAP 8 MMOL/L (8-16); BLOOD UREA NITROGEN 14.5 mg/dL (7-18); CALCIUM 9.3 mg/dL (8.5-10.1); CO2 27 mmol/L (21-32)
[2021-09-09 15:12] LABS: GLUCOSE,RANDOM 98 mg/dL (74-106)
[2021-09-09 15:14] LABS: CHOLESTEROL 214 mg/dL (50-200); SGOT/AST 25 U/L (15-37); TRIGLYCERIDES 80 mg/dL (0-150)
[2021-09-09 15:15] LABS: CREATININE 0.9 mg/dL (0.55-1.3); LDL CHOLESTEROL (ONLY SJRH) 94 mg/dL (5-100)
[2021-09-09 15:16] LABS: ALK PHOS 81 U/L (45-117); TOT PROT 7.5 g/dl (6.4-8.2)
[2021-09-09 15:17] LABS: HDL CHOLESTEROL 99 mg/dL (40-60)
[2021-09-09] MEDS ORDERED: diazePAM 2 MG TABLET PO ONE (15:18)
[2021-09-09 15:23] LABS: SGPT/ALT 38 U/L (13-61)
[2021-09-09 16:51] LABS: EPI CELLS 15 /uL (0-25.1); HYALINE CASTS 1 /uL (0-3.1); URINE APPEARANCE CLEAR; URINE BACTERIA 186 /uL (0-1359); URINE BILIRUBIN NEGATIVE (NEGATIVE); URINE COLOR YELLOW; URINE GLUCOSE (UA) NEGATIVE (NEGATIVE); URINE KETONE NEGATIVE (NEGATIVE); URINE LEUK ESTERASE 1+ (NEGATIVE); URINE NITRITE NEGATIVE (NEGATIVE); URINE PROTEIN 1+ (NEGATIVE); URINE RBC 6 /uL (0-23.9); URINE UROBILINOGEN 0.2 mg/dL (0.2-1.0); URINE WBC 51 /uL (0-25.8)
[2021-09-09] MEDS ORDERED: diazePAM 2 MG TABLET ONE (18:29)
[2021-09-09 20:04] VITALS: BP 159/76; PULSE 78
== END 2021-09-09 20:04 | disposition home or self-care (01) ==
LOC: JER 09:58
PROC: 3E033GC Introduction of Other Therapeutic Substance into Peripheral Vein, Percutaneous Approach (ICD-10-PCS; principal; 2021-09-09)
DX: R42 Dizziness and giddiness (principal)
CPT/HCPCS: 36415; 70450-TC; 70551-TC; 71045-TC-FY; 80053; 80061; 81003; 82550; 83036; 84484; 85025; 85610; 85730; 86850; 86900; 86901; 93005; 93010; 99285-25